=== PATIENT | male | born 1945 | race Caucasian/White ===

== ENCOUNTER 2020-05-28 06:00 | Outpatient (RCR) | payer MEDICARE, BC, SELFPAY | END 2020-06-23 23:59 | disposition home or self-care (01) | LOC: MOT 06:00 | PROVIDERS: PCP Family Medicine; Referring Provider Family Medicine; Visit Provider Family Medicine | DX: I89.0 Lymphedema, not elsewhere classified (principal) | CPT/HCPCS: 97140; 97166 ==

== ENCOUNTER 2022-02-21 15:50 | Inpatient (IN) | payer MEDICARE, BC, SELFPAY ==
[2022-02-21] VITALS (8 sets, daily range): BP systolic 88–123; BP diastolic 42–75; PULSE 75–100; RESP 22–29; TEMP 39.1; O2SAT 96–98; BMI 39.5; BMI 39.8
--- NOTE | 2022-02-21 16:19 | W.ED.WEAKNES ---
HPI - Weakness General: Chief complaint: Weakness Stated complaint: WEAKNESS; FALL Time Seen by Provider: 02/21/22 15:56 Source: patient Mode of arrival: EMS Limitations: no limitations History of Present Illness: Currently is here becauseThis patient was transported from home by EMS to our facility. He or his family are concerned about falling. He apparently has had recent falls last night and this morning. He states he has had some falls previous in the last few weeks. He states he predominantly is changing positions and loses his balance which resulted in a a fall. He did not injure himself today or last night. He states 2 weeks ago he fell and skinned his left arm. He denies passing out or syncope or other prodromes to his falls. He states that usually involve again as noted changing positions or rising up or attempting to move about his home. He does have a walker and a cane he uses to aid in ambulation around home. He denies chest pain or shortness of breath. He does have a history of coronary stents placed several years ago in [place] but again has had no subsequent chest pain shortness of breath or other constitutional symptoms. He states he has been faithful to all his medications. He has chronic peripheral edema as well as diabetes. He denies recent illness to include fever, cough, nausea, vomiting, diarrhea. He states he ate his normal breakfast today. Associated symptoms: Denies chest pain, chills, dysuria, easy bruising, fever(s), headache(s), nausea, syncope or vomiting Review of Systems Const: Denies: fever(s), chills, body aches or change in appetite Eyes: Denies: change in vision ENMT: Denies: odynophagia, nasal congestion or sinus pain Card: Reports: swelling of feet/ankles (Chronic); Denies: chest pain, palpitations, irregular heart rhythm, lightheadedness, syncope or pre-syncope Resp: Denies: dyspnea, productive cough or non-productive cough GI: Denies: abdominal pain, nausea, vomiting or diarrhea : Denies: flank pain, difficulty urinating, dysuria or urinary frequency Musc: Denies: neck pain, back pain or extremity pain Skin/Breast: Reports: rash (Chronic erythema particularly of his left lower extremity.) Neuro: Reports: difficulty walking and frequent falls; Denies: headache(s), numbness in extremities, weakness in extremities, dizziness, vertigo or Slurred speech present Psych: Denies: anxiety or depression Endo: Reports: polydipsia; Denies: polyuria Ron/Lymph: Denies: easy bruising or easy bleeding Physical Exam Narrative: EXAM NARRATIVE: The patient is alert. He is cooperative. He is rather obese gentleman who appears to be comfortable. Const: COMMON NORMALS: no acute distress, patient oriented x3 and alert NUTRITIONAL APPEARANCE: obese and overweight HENMT: COMMON NORMALS: normocephalic, atraumatic, external ears normal, Normal nasal mucous membranes and turbinates present, moist oral mucous membranes and oropharynx normal HEAD & SCALP: normal to inspection, normocephalic and atraumatic FACE & SINUS: normal facial exam NOSE: Normal nasal mucous membranes and turbinates present EXTERNAL EAR: Yes external ears normal Eye: COMMON NORMALS: Equal, round and reactive pupils present, EOMs intact bilaterally and conjunctivae normal CONJUNCTIVA: Yes conjunctivae normal PUPIL: Yes Equal, round and reactive pupils present Neck/C-Spine: COMMON NORMALS: full ROM CERVICAL SPINE: Yes cervical ROM normal, No pain with cervical ROM, No Cervical spine tenderness, No step off deformity, No Paracervical muscle tenderness and No Paracervical spasm Chest: COMMONS NORMALS: normal inspection of the chest and normal palpation of entire chest wall Resp: COMMON NORMALS: normal respiratory effort, No retractions, No use of accessory muscles and clear to auscultation bilaterally AUSCULTATION: clear to auscultation bilaterally Cardio: COMMON NORMALS: regular rate, regular rhythm, No murmurs present (Cardio) and Peripheral pulses 2+ throughout RATE: regular rate RHYTHM: regular rhythm PERIPHERAL PULSES: Peripheral pulses 2+ throughout GI: OTHER: He has a protuberant, obese abdomen. No masses noted. No tenderness to palpation. No erythema of the overlying skin. Back/Pelvis: COMMON NORMALS: thoracic and lumbar spine normal to inspection, no thoracic nor lumbar tenderness, thoraco-lumbar ROM normal and straight leg raise negative bilaterally Extremity: NARRATIVE EXTREMITY EXAM: He is able to move all extremities. He has symmetrical movement. He has markedly hypertrophied skin of both lower extremities with cracking and fissuring. There are some erythema of the left lower leg from the proximal third of the calf distally. There is no proximal lymphangitis or adenopathy. His right lower extremity is nonerythematous but is similarly edematous. Neuro: COMMON NORMALS: patient oriented x3, moves all extremities, no focal motor deficits and no sensory deficits noted SENSORIUM/ORIENTATION: Yes alert SPEECH: speech normal Psych: COMMON NORMALS: mental status grossly normal Skin: COMMON NORMALS: no jaundice NARRATIVE SKIN EXAM: As noted in the extremity exam he has markedly hypertrophied and thickened skin of both lower extremities. He has dry flaky dermis with some cracking and fissuring of the skin in various locations. There is erythema of the skin on his left lower extremity. No proximal lymphangitis or lymphadenopathy noted. Course Reevaluation(s): Reevaluation #1: Patient remains stable. He is alert and interactive. Repeat blood pressures still show systolic pressure between 95 and 105 and a semirecumbent position. Family is now present. They relate that they are very concerned about him particularly ability to care for him at home given his generalized weakness. Again the history was reviewed regarding his most recent 2 falls. His spouse who was present during both episodes states that he essentially slid to the floor on the first episode on the second episode hit her the family was present in the bathroom and prevented him from falling or hurting himself but he stated he was globally weak. Again they reiterate that they are very concerned about him returning home because of his current clinical condition. He apparently has not taken his insulin today we will go ahead and give him his midday insulin to event significant continued elevations in his blood sugar. We have verified that his usual dose of insulin is NovoLog 70/30 56 units 3 times daily. Time: 18:29 Reevaluation #2: Laboratories of now returned. His anion gap is significantly elevated as well as a depressed carbon dioxide level consistent with probable mild DKA given his lack of insulin use today. He also has a mild elevation in his troponin without any associated chest pain or EKG changes. Does have a history of significant myocardial disease which is also the reason for his tenuous blood pressure due to the need to manage his what sounds like and chronic congestive heart failure etc. Discussed current findings and the need for inpatient care to close his gap reverses ketosis. We will also place a consult for social services counselor to evaluate for additional resources or potential admission to [facility] facility post acute hospitalization. Time: 20:16 Consultations: Consultation #1: Discussed with Dr. French attending hospitalist. We will [place] start insulin infusion, IV fluids as well as serial troponins. Time: 20:10 Vital Signs: Vital signs: Vital Signs Pulse Rate 83 02/21/22 19:00 Respiratory Rate 22 H 02/21/22 19:30 Blood Pressure 113/75 02/21/22 19:30 Pulse Oximetry 97 02/21/22 19:30 Oxygen Delivery Me thod 02/21/22 19:00 MDM - Weakness Medical Decision Making Patient presented via EMS with 2 recent falls attributed to global weakness and no focal weakness, no trauma, etc. He had not taken his usual daily insulin dose which was a significant dose of 70/30 Humalog. Initial evaluation showed elevation in Accu-Chek and he was given his usual midday insulin dose. Subsequent laboratories revealed that he had significant anion gap with a low CO2 suggestive of ketosis. This combined with his tenuous myocardial function and elevated troponin warrants admission for insulin infusion, monitoring the closing of his gap and continued monitoring of his cardiac status. Also because of family is concerned about ability to care for him at home we have consulted social services counselor to evaluate for [facility] or long-term care facility placement. Medical Records I reviewed the patient's medical records. Lab Data I reviewed the patient's lab results. : 02/21/22 18:07 02/21/22 18:07 Radiology Impressions Chest X-Ray 02/21/22 18:35 IMPRESSION: 1. Mild cardiomegaly is present. 2. No acute abnormality demonstrated. Laboratory Results WBC 7.4 10^3/uL (4.0-10.0) 02/21/22 18:07 RBC 4.86 10^6/uL (4.1-5.3) 02/21/22 18:07 Hgb 16.1 g/dL (11.7-16.6) 02/21/22 18:07 Hct 49.0 % (42.0-52.0) 02/21/22 18:07 MCV 100.8 fl (80-94) H 02/21/22 18:07 MCH 33.1 pg (28.0-34.0) 02/21/22 18:07 MCHC 32.9 g/dL (30.0-36.0) 02/21/22 18:07 RDW 13.2 % (12.1-15.1) 02/21/22 18:07 Plt Count 139 10^3/cmm (130-400) 02/21/22 18:07 MPV 11.0 fL (7.4-10.4) H 02/21/22 18:07 Neut % (Auto) 85.4 % 02/21/22 18:07 Lymph % (Auto) 6.3 % 02/21/22 18:07 Terrell % (Auto) 7.5 % 02/21/22 18:07 Eos % (Auto) 0.0 % 02/21/22 18:07 Baso % (Auto) 0.7 % 02/21/22 18:07 Neut # (Auto) 6.28 10^3/uL (1.8-7.7) 02/21/22 18:07 Lymph # (Auto) 0.5 10^3/uL (0.8-4.8) L 02/21/22 18:07 Terrell # (Auto) 0.6 10^3/uL (0.2-0.9) 02/21/22 18:07 Eos # (Auto) 0.0 10^3/uL (0.0-0.8) 02/21/22 18:07 Baso # (Auto) 0.1 10^3/uL (0.0-0.1) 02/21/22 18:07 Nucleated RBC % (auto) 0 % 02/21/22 18:07 Nucleated RBCs # 0.0 /100WBC 02/21/22 18:07 Sodium 137 mmol/L (136-145) 02/21/22 18:07 Potassium 5.1 mmol/L (3.5-5.1) 02/21/22 18:07 Chloride 95 mmol/L (98-107) L 02/21/22 18:07 Carbon Dioxide 14 mmol/L (22-29) L 02/21/22 18:07 Anion Gap 33.1 (5-19) H 02/21/22 18:07 BUN 21 mg/dL (8-23) 02/21/22 18:07 Creatinine 1.7 mg/dL (0.7-1.2) H 02/21/22 18:07 GFR Calculation Not Reportable 02/21/22 18:07 Glucose 405 mg/dL (65-115) H 02/21/22 18:07 POC Glucose 375 mg/dL (70-110) H 02/21/22 17:07 Calculated Osmolality 304 mOsm/kg (285-295) H 02/21/22 18:07 Calcium 9.3 mg/dL (8.5-10.5) 02/21/22 18:07 Total Bilirubin 2.2 mg/dL (0.15-1.2) H 02/21/22 18:07 AST 37 U/L (0-40) 02/21/22 18:07 ALT 20 U/L (0-41) 02/21/22 18:07 Alkaline Phosphatase 68 IU/L (40-130) 02/21/22 18:07 Troponin T Baseline 59 ng/L (0-15) H 02/21/22 18:07 Total Protein 6.4 g/dL (6.6-8.7) L 02/21/22 18:07 Albumin 3.6 g/dL (3.5-5.2) 02/21/22 18:07 Globulin 2.8 g/dL (1.3-4.6) 02/21/22 18:07 EKG Data EKG 1: I personally reviewed and interpreted this EKG as follows: EKG interpretation time: 17:00 Interpretation: HasResting EKG shows a sinus rhythm 96 bpm. He has a MD interval and QRS duration that are within normal limits. His QTC is normal as well. [place] is normal as well. No evidence of acute ST-T wave changes at this time. Does have a loss of anterior forces in V3 4 5 and 6 consistent with a possible old anterior lateral MO. No prior tracings available for comparison. Discharge Plan Discharge Patient Disposition: Admitted As Inpatient Clinical Impression: Diabetic keto-acidosis, Elevated troponin Condition: Stable Coding Level of Care Code ED Android Framework Developer for Nicolas Fwd Exam Comprehensive
--- NOTE | 2022-02-21 16:52 | ECG_ITS ---
[facility] Test Date: 2022-02-21 Pat Name: Xavier Easton Department: Room: Gender: Male Records Management Technician: : 1945 Requested By: Oracio Bhat Order Number: [id number] Khadra MD: Jose Gutierres M.D. Measurements Intervals [place] Rate: 96 P: 44 AR: 198 QRS: 67 QRSD: 125 T: 35 QT: 388 QTc: 491 Interpretive Statements SINUS RHYTHM INDETERMINATE AXIS INFERIOR MYOCARDIAL INFARCTION , PROBABLY OLD [40+ ms Q WAVE AND/OR ST/T ABNORMALITY IN II/aVF] ANTEROLATERAL MYOCARDIAL INFARCTION , OF INDETERMINATE AGE [40+ ms Q WAVE IN I/aVL/V3-V6] No previous ECG available for comparison Electronically Signed On 02-22-2022 9:30:08 CDT by Jose Gutierres M.D. [email or web address]
[2022-02-21 17:11] LABS: Glucose Point of Care 375 mg/dL (70-110)
--- NOTE | 2022-02-21 18:35 | XRR_ITS ---
PROCEDURE INFORMATION: Exam: XR Chest Exam date and time: 02/21/2022 6:53 PM Age: 76 years old Clinical indication: Dyspnea; Additional info: Hypotension TECHNIQUE: Imaging protocol: Radiologic exam of the chest. Views: 1 view. COMPARISON: No relevant prior studies available. FINDINGS: Lungs: No consolidative pulmonary infiltrates are noted. Pleural spaces: No pleural effusion. No pneumothorax. Heart/Mediastinum: Mild cardiomegaly is present. Bones/joints: Mild degenerative spine changes. XR/XR chest 1V portable [id number] IMPRESSION: 1. Mild cardiomegaly is present. 2. No acute abnormality demonstrated.
[2022-02-21 18:37] LABS: Basophils # 0.1 10^3/uL (0.0-0.1); Basophils % 0.7 %; Hemoglobin 16.1 g/dL (11.7-16.6); Lymphocytes # 0.5 10^3/uL (0.8-4.8); Lymphocytes % 6.3 %; Mean Corpuscular HGB Conc 32.9 g/dL (30.0-36.0); Mean Corpuscular Hemoglobin 33.1 pg (28.0-34.0); Mean Corpuscular Volume 100.8 fl (80-94); Monocytes # 0.6 10^3/uL (0.2-0.9); Monocytes % 7.5 %; Neutrophils # 6.28 10^3/uL (1.8-7.7); Neutrophils % 85.4 %; Nucleated Red Blood Cells % 0 %; Platelet Count 139 10^3/cmm (130-400); Red Blood Count 4.86 10^6/uL (4.1-5.3); Red Cell Distribution Width 13.2 % (12.1-15.1); White Blood Count 7.4 10^3/uL (4.0-10.0)
[2022-02-21] MEDS: insulin aspart 70/30 100 units/1 mL 56 UNIT SUBCUT (18:53)
[2022-02-21 19:09] LABS: Alanine Aminotransferase 20 U/L (0-41); Albumin Level 3.6 g/dL (3.5-5.2); Alkaline Phosphatase 68 IU/L (40-130); Anion Gap 33.1 (5-19); Aspartate Amino Transferase 37 U/L (0-40); Blood Urea Nitrogen 21 mg/dL (8-23); Calcium 9.3 mg/dL (8.5-10.5); Carbon Dioxide 14 mmol/L (22-29); Chloride 95 mmol/L (98-107); Globulin 2.8 g/dL (1.3-4.6); Glucose 405 mg/dL (65-115); Osmolality Calculated 304 mOsm/kg (285-295); Potassium 5.1 mmol/L (3.5-5.1); Sodium 137 mmol/L (136-145); Total Bilirubin 2.2 mg/dL (0.15-1.2); Total Protein 6.4 g/dL (6.6-8.7)
[2022-02-21 19:18] LABS: Slide Review Slide Review Perform
[2022-02-21 19:25] LABS: Troponin(5th) Baseline 59 ng/L (0-15)
[2022-02-21] MEDS: lactated ringers 1,000 ML 150 ML IV (20:13)
[2022-02-21 20:27] LABS: Glucose Point of Care 354 mg/dL (70-110)
[2022-02-21] MEDS: insulin regular-human 250 UNIT in sodium chloride 0.9% 250 ML 8.91 UNIT IV (21:25)
[2022-02-21] MEDS: aspirin 81 mg Chew Tablet 324 MG PO (21:39)
[2022-02-21 21:40] LABS: ABG PCO2 25.1 mmHg (35-45); ABG PH Result 7.43 (7.35-7.45); Arterial Blood Gas Hematocrit 48.9 % (42-52); Base Excess ABG -5.8 mmol/L (-2.0-2.0); Blood Gas Allen Test Pos; Blood Gas Sample Site Radial, left; Blood Gas Sample Type Arterial; Carboxyhemoglobin 1.3 %THgb (0.4-20.1); HCO3 ABG 16.5 mmol/L (22-26); HGB O2 Sat 93.6 % (95-100); Ionized Calcium Level - ABG 1.2 mmol/L (1.1-1.4); Methemoglobin 0.8 % (0.4-1.5); Oxygen Saturation ABG 95.6; PO2 ABG 71.6 mmHg (80.0-100.0); Potassium Level - ABG 4.2 mmol/L (3.5-5.0)
[2022-02-21 21:50] LABS: Glucose Point of Care 360 mg/dL (70-110)
[2022-02-21] MEDS: acetaminophen 325 mg Tablet 650 MG PO (22:06)
[2022-02-21 22:25] LABS: Glucose Point of Care 343 mg/dL (70-110)
--- NOTE | 2022-02-21 22:44 | P.HP_ITS ---
Providers/Chief Complaint Admitting Physician: Deepa French MD Primary Care Provider: Radha Baer MD Chief Complaint: WEAKNESS; FALL History of Present Illness Xavier Easton is a 76 year old male with PMH HTN,DM, chronic lymphedema brought to the ER today with h/o recurrent falls. History is limited by the patient being in mild distress, acidotic breathing, being febrile. He reports he has been fatigued, has generalized bodyache and has been falling at home over the past 3 weeks. Denies syncope , chest pain, palpitations, syncope at home. Denies fever, chills at home, however has temp of 102F currently. He has B/L LE chronic lymphedema, with left leg appearing warm and erythematous. He states this is chronic. Today he is noted to be in DKA, with hyperglycemia, metabolic acidosis, increased anion gap. He has not used insulin in the last 24 hrs. Denies any nausea, vomiting, diarrhea, abdominal pain, dysuria. Review of Systems General: Reports: 10 or more systems reviewed and unremarkable except in HPI and below Const: Denies: fever(s), chills or body aches Eyes: Denies: change in vision, blurry vision or photophobia ENMT: Reports: hoarseness; Denies: throat pain, enlarged tonsils, odynophagia or nasal congestion Card: Denies: chest pain, palpitations, irregular heart rhythm, edema, swelling of feet/ankles, lightheadedness, pre-syncope, dyspnea on exertion or orthopnea Resp: Denies: dyspnea, productive cough, non-productive cough, wheezing, stridor, pain on inspiration, change in phlegm color, hemoptysis or chest conges tion GI: Denies: abdominal pain, nausea, vomiting, hematemesis, coffee ground emesis, dysphagia, heartburn, diarrhea, constipation, GI cramping, change in stool character, hematochezia or melena : Denies: flank pain, dysuria, urinary frequency, urinary urgency, urinary hesitancy or hematuria Musc: Denies: neck pain, back pain, extremity pain, joint swelling, joint warmth or deformity Neuro: Denies: headache(s), numbness in extremities, weakness in extremities, sensory changes, difficulty walking, frequent falls, dizziness, vertigo, behavioral changes, Slurred speech present or seizure-like activity Psych: Denies: anxiety, depression, suicidal ideation or homicidal ideation Endo: Denies: polyuria, polydipsia, tired all the time, cold intolerance or hot flashes Ron/Lymph: Denies: easy bruising or easy bleeding Medications/Allergies Home Medications Medication Instructions Recorded Confirmed Last Taken Type aspirin 81 mg chewable tablet 81 mg PO DAILY 02/21/22 02/21/22 02/21/22 History atorvastatin 40 mg tablet 40 mg PO DAILY 02/21/22 02/21/22 02/20/22 History clopidogrel 75 mg tablet 75 mg PO DAILY 02/21/22 02/21/22 02/21/22 History insulin human U-100 NPH-regulr 56 unit SUBCUT TID 02/21/22 02/21/22 02/20/22 History 70-30 mix 100 unit/mL subcutaneous susp (Novolin 70/30 U-100 Insulin) isosorbide mononitrate 30 mg 30 mg PO DAILY 02/21/22 02/21/22 02/21/22 History tablet,extended release 24 hr lisinopril 20 mg tablet 10 mg PO DAILY 02/21/22 02/21/22 02/21/22 History potassium chloride 20 mEq 20 meq PO DAILY 02/21/22 02/21/22 02/21/22 History tablet,extended release timolol maleate 0.5 % eye drops 1 drp ophthalmic (eye) DAILY 02/21/22 02/21/22 02/21/22 History torsemide 10 mg tablet 10 mg PO DAILY 02/21/22 02/21/22 02/21/22 History tramadol 50 mg tablet 50 mg PO Q4H PRN Pain 02/21/22 02/21/22 Unknown History Allergies Allergy/AdvReac Type Severity Reaction Status Date / Time No Known Allergies Allergy Unverified 02/21/22 17:59 PFSH Acute PFSH: Medical History (Updated 02/22/22 @ 03:34 by Deepa French MD) Diabetes mellitus Hypertension Lymphedema Vitals/I&O/Wt Last Vital Signs Temp 102.3 F H 02/21/22 21:30 Pulse 76 02/21/22 22:30 Resp 29 H 02/21/22 22:30 BP 123/42 02/21/22 22:30 Pulse Ox 97 02/21/22 22:30 O2 Del Method 02/21/22 22:30 02/21/22 02/21/22 02/21/22 06:59 14:59 22:59 Intake Total 8.91 / 8.91 Balance 8.91 / 8.91 Weight last 48 hrs Weight 136.078 kg Physical Exam Narrative: General: tachypneic, diaphoretic, ill appearing HEENT: PERRLA, pupils bilaterally equal and reactive, pallors not present Chest: Normal vesicular breath sounds CVS: S1-S2 regular, no gallops, no rubs Abdomen: Soft, nontender, no organomegaly, bowel sounds present Neuro: No focal motor deficits, no facial deformity, AO x3 Extremities: B/L LE lymphedema, LLE > RLE, erythematous, warm and tense Data : 02/21/22 18:07 02/21/22 18:07 A&P Assessment and plan (1) Diabetic keto-acidosis: Diabetic ketoacidosis: Start patient on insulin drip as per DKA/HHS protocol with target blood sugars between 100-130 normal saline at 50 cc/h.Gentle hydration as patient is with significant LE edema We will switch to D5 NS once blood sugar less than 250. Monitor BMP every 6 hours. Once potassium less than 4 we will add 20 mg of potassium to IV fluids. Monitor saturations. Maintain over 90%. Transition to sliding scale and long-acting insulin once anion gap resolves. likely precipitated by cellulitis Other infectious w/up with CXR, UA, urine cx, blood cx, lactate Status: Acute (2) Cellulitis: LLE cellulitis with a background lymphedema Empiric zosyn and vancomycin Blood cx stat monitor for improvement Status: Acute Attestations Medical Necessity Statement*: anticipate >2midnight admission for management of DKA, insuin drip, iv abx Critical Care Time: The high probability of a clinically significant, sudden or life threatening deterioration of the patient's [endocrine,infectious] system(s) required my full and direct attention, intervention and personal management. The critical care time is as shown. This time is in addition to time spent performing any reported procedures but includes the following: [x] Data and vital sign review and interpretation [x] Patient assessment, examination and intervention [x] Documentation [x] Medication orders and management Critical Care Time (min): 45 Coding Level of Care Code Acute Assistant Director Of Residence Life for Chg Fwd Diagnoses Diabetic keto-acidosis E11.10 Cellulitis L03.90
[2022-02-21 23:03] LABS: Magnesium 1.6 mg/dL (1.7-2.3)
[2022-02-21 23:45] LABS: Glucose Point of Care 249 mg/dL (70-110)
[2022-02-21 23:45] LABS: Ketone (Acetest) Serum Negative (Negative)
[2022-02-21 23:57] LABS: SARS Covid-2 Antigen Negative (Negative)
[2022-02-22] VITALS (102 sets, daily range): BP systolic 79–151; BP diastolic 34–113; PULSE 58–87; RESP 13–36; TEMP 36.7–39; O2SAT 85–100
[2022-02-22] MEDS: piperacillin-tazobactam 3.375 GM in sodium chloride 0.9% (plus) 50 ML IV ×3 (00:27→17:30)
[2022-02-22 01:06] LABS: Glucose Point of Care 188 mg/dL (70-110)
[2022-02-22] MEDS: dextrose 5%-sod chloride 0.9% 1,000 ML 50 ML IV (01:39)
[2022-02-22 02:53] LABS: Alanine Aminotransferase 20 U/L (0-41); Albumin Level 3.1 g/dL (3.5-5.2); Alkaline Phosphatase 57 IU/L (40-130); Aspartate Amino Transferase 42 U/L (0-40); Blood Urea Nitrogen 29 mg/dL (8-23); Calcium 9.3 mg/dL (8.5-10.5); Carbon Dioxide 19 mmol/L (22-29); Chloride 102 mmol/L (98-107); Globulin 2.8 g/dL (1.3-4.6); Glucose 193 mg/dL (65-115); Osmolality Calculated 293 mOsm/kg (285-295); Sodium 136 mmol/L (136-145); Total Bilirubin 2.2 mg/dL (0.15-1.2); Total Protein 5.9 g/dL (6.6-8.7)
[2022-02-22 02:56] LABS: Glucose Point of Care 182 mg/dL (70-110)
[2022-02-22 03:06] LABS: Glucose Point of Care 179 mg/dL (70-110)
[2022-02-22 03:26] LABS: Anion Gap 19.1 (5-19); Potassium 4.1 mmol/L (3.5-5.1)
[2022-02-22 03:29] LABS: Lactic Sepsis W/Reflex 4.8 mmol/L (0.5-2.2)
[2022-02-22 04:08] LABS: Glucose Point of Care 174 mg/dL (70-110)
[2022-02-22 04:17] LABS: Reflex Lactate Order REFLEX LACTIC ORDERD
[2022-02-22 05:18] LABS: Glucose Point of Care 160 mg/dL (70-110)
[2022-02-22] MEDS: enoxaparin 40 mg/0.4 mL Syringe SUBCUT (06:09)
[2022-02-22 06:14] LABS: Glucose Point of Care 161 mg/dL (70-110)
[2022-02-22 06:19] LABS: Lactic Acid level (Lactate) 3.9 mmol/L (0.5-2.2)
[2022-02-22 06:21] LABS: Alanine Aminotransferase 21 U/L (0-41); Albumin Level 3.4 g/dL (3.5-5.2); Alkaline Phosphatase 51 IU/L (40-130); Aspartate Amino Transferase 48 U/L (0-40); Blood Urea Nitrogen 30 mg/dL (8-23); Calcium 9.1 mg/dL (8.5-10.5); Carbon Dioxide 23 mmol/L (22-29); Chloride 99 mmol/L (98-107); Globulin 2.7 g/dL (1.3-4.6); Glucose 166 mg/dL (65-115); Osmolality Calculated 292 mOsm/kg (285-295); Sodium 136 mmol/L (136-145); Total Bilirubin 2.2 mg/dL (0.15-1.2); Total Protein 6.1 g/dL (6.6-8.7)
[2022-02-22 07:19] LABS: Glucose Point of Care 150 mg/dL (70-110)
[2022-02-22 08:18] LABS: Glucose Point of Care 136 mg/dL (70-110)
[2022-02-22] MEDS: aspirin 81 mg Chew Tablet PO (09:22)
[2022-02-22] MEDS: clopidogrel 75 mg Tablet PO (09:22)
[2022-02-22] MEDS: atorvastatin 40 mg Tablet PO (09:22)
[2022-02-22] MEDS: pantoprazole DR 40 mg Tablet PO (09:22)
[2022-02-22] MEDS: timolol 0.5% Op Soln 5 mL Btl 1 DROP EYE-BOTH (09:30)
[2022-02-22] MEDS: insulin glargine 100 units/1 mL 20 UNIT SUBCUT ×2 (10:48→20:59)
[2022-02-22 10:54] LABS: Glucose Point of Care 148 mg/dL (70-110)
--- NOTE | 2022-02-22 11:20 | P.PN_ITS ---
Subjective Subjective: Patient was seen and examined this morning, slightly drowsy, was complaining of neck pain , anion gap is closed. Transition to Lantus and sliding scale insulin. Noted T-max: 102.3 . on diabetic diet . l Medications: Medication Review Details: Generic Name Dose Route Start Last Admin Trade Name Rain PRN Reason Stop Dose Admin Aspirin 81 mg 02/22/22 09:00 02/22/22 09:22 Aspirin 81 Mg Ch ew Tablet PO 81 mg DAILY GELY Administration Atorvastatin Calci um 40 mg 02/22/22 09:00 02/22/22 09:22 Atorvastatin 40 Mg Tablet PO 40 mg DAILY GELY Administration Clopidogrel Bisulf ate 75 mg 02/22/22 09:00 02/22/22 09:22 Clopidogrel 75 M g Tablet PO 75 mg DAILY EGLY Administration Enoxaparin Sodium 40 mg 02/22/22 06:00 02/22/22 06:09 Enoxaparin 40 Mg /0.4 Ml Syringe SUBCUT 40 mg Q24H GELY Administration Piperacillin Sod/T azobactam 50 mls @ 12.5 mls /hr 02/22/22 00:00 02/22/22 09:23 Sod 3.375 gm/ So dium Chloride IV 12.5 mls/hr Q8H GELY Administration Pantoprazole Sodiu m 40 mg 02/22/22 09:00 02/22/22 09:[address] 40 Mg Tablet PO 40 mg DAILY GELY Administration Timolol Maleate 1 drop 02/22/22 09:00 02/22/22 09:30 Timolol 0.5% Op Soln 5 Ml Btl EYE-BOTH 1 drop DAILY GELY Administration Vitals/I&O/Wt Last Vital Signs Temp 99.3 F 02/22/22 04:00 Pulse 69 02/22/22 08:00 Resp 27 H 02/22/22 06:15 BP 91/67 02/22/22 06:15 Pulse Ox 97 02/22/22 08:00 O2 Del Method 02/22/22 08:00 02/21/22 02/22/22 02/22/22 22:59 06:59 14:59 Intake Total 8.91 / 8.91 801.263 / 810.173 8.874 / 8.874 Output Total 400 / 400 Balance 8.91 / 8.91 401.263 / 410.173 8.874 / 8.874 Weight last 48 hrs Weight 137 kg Weight 137 kg Weight 136.078 kg Physical Exam Const: COMMON NORMALS: patient oriented x3 HENMT: COMMON NORMALS: normocephalic and atraumatic HEAD & SCALP: norm ocephalic and atraumatic Resp: COMMON NORMALS: clear to auscultation bilaterally EFFORT & INSPECTION: Yes symmetric chest movement AUSCULTATION: clear to auscultation bilaterally Cardio: COMMON NORMALS: regular rate, regular rhythm, S1 normal heart sound present, S2 normal heart sound present, No gallops present (Cardio), No murmurs present (Cardio), No rub (Cardio) and Peripheral pulses 2+ throughout RATE: regular rate RHYTHM: regular rhythm HEART SOUNDS: S1 normal heart sound present and S2 normal heart sound present PERIPHERAL PULSES: Peripheral pulses 2+ throughout GI: COMMON NORMALS: Normal to inspection, nondistended, normoactive bowel sounds present, Soft to palpation, non-tender, No hepatosplenomegaly present and no masses AUSCULTATION: Yes normoactive bowel sounds PALPATION: Yes Soft to palpation and Yes No hepatosplenomegaly present RECTAL EXAM: Yes deferred Extremity: OTHER: Chronic lower extremity lymphedema Neuro: COMMON NORMALS: patient oriented x3 Urinary Catheter Management: Santana Latex: Cath Placed During This Visit: yes Reason for Continuing Indwelling Catheter: Accurate Measurement of Urinary Output in Critically Ill Patients Urinary Catheter Date of Insertion: 02/21/22 Urinary Catheter Time of Insertion: 23:51 Data : 02/21/22 18:07 02/22/22 05:50 Micro: Microbiology 02/21/22 23:50 Blood Culture - Preliminary Blood SPECIMEN COLLECTED 02/21/22 23:50 Blood Culture - Preliminary Blood SPECIMEN COLLECTED A&P Assessment and plan (1) Diabetic keto-acidosis: Diabetic ketoacidosis: Start patient on insulin drip as per DKA/HHS protocol wi th target blood sugars between 100-130 normal saline at 50 cc/h.Gentle hydration as patient is with significant LE edema We will switch to D5 NS once blood sugar less than 250. Monitor BMP every 6 hours. Once potassium less than 4 we will add 20 mg of potassium to IV fluids. Monitor saturations. Maintain over 90%. Transition to sliding scale and long-acting insulin once anion gap resolves. likely precipitated by cellulitis Other infectious w/up with CXR, UA, urine cx, blood cx, lactate Status: Acute (2) Cellulitis: LLE cellulitis with a background lymphedema Empiric zosyn and vancomycin Blood cx stat monitor for improvement Status: Acute Plan 76 year old male with PMH HTN,DM, chronic lymphedema brought to the ER with h/o recurrent falls. Currently being managed for. Assessment: DKA: Resolved Likely sepsis: Patient is febrile, has AQUILES, elevated bilirubin, elevated AST, lower extremity cellulitis Hypertension AQUILES on CKD Diabetes Chronic lymphedema History of recurrent fall Assessment: X-ray chest: No consolidative pulmonary infiltrates. Follow blood culture. Follow MRSA PCR Monitor BMP Monitor and output charting Avoid nephrotoxic Continue to hold, lisinopril, torsemide Currently is on Lantus, LDSSI Continue aspirin Plavix, statin Currently is empirically on Vanco and Zosyn physical therapy on board DVT prophylaxis: On Lovenox. CODE STATUS: Full code Attestations Medical Necessity Statement*: Patient is in the hospital management of DKA , sepsis. Time Spent in Patient Care: Greater than 35 minutes (>than 50% of time spent in counselling and/or direct pt care on unit) . Critical Care Time: The high probability of a clinically significant, sudden or life threatening deterioration of the patient's [] system(s) required my full and direct attention, intervention and personal management. The critical care time is as shown. This time is in addition to time spent performing any reported procedures but includes the following: [x] Data and vital sign review and interpretation [x] Patient assessment, examination and intervention [x] Documentation [x] Medication orders and management Critical Care Time (min): 30 Coding Level of Care Code Acute Pest Locator for Chg Fwd Exam Detailed Diagnoses Diabetic keto-acidosis E11.10 Cellulitis L03.90
--- NOTE | 2022-02-22 11:53 | PC.NURSE ---
Upon morning assessment, patient is alert and oriented to person, place, time, and situation, but does have some slurred speech and some issues with coordination when trying to eat. Patient has a history oc a carotid stent. Nurse completed an NIHSS scale and patient has scored a 1. THe patient's is at bedside and says that he has had some coordination issues, and some moments of strange behavior. SHe recalls a time that he has attempted to hand her something, but will not let go and doesn't appear to know he is still holding the item. She says this has started 3 weeks ago[address] Nurse notified Dr wilson. No new orders received.
[2022-02-22] MEDS: insulin lispro 100 unit/1 mL SUBCUT ×3 (12:30→20:57)
[2022-02-22] MEDS: vancomycin 1,500 MG/300 ML PIGGYBACK 200 MG IV (12:32)
[2022-02-22] MEDS: acetaminophen 325 mg Tablet 650 MG PO ×2 (12:38→21:04)
[2022-02-22] MEDS: sodium chloride 0.9% 500 ML IV (14:29)
[2022-02-22 17:32] LABS: Glucose Point of Care 206 mg/dL (70-110)
--- NOTE | 2022-02-22 18:42 | PC.NURSE ---
SHift Summary: uneventful shift. patient rested in bed most of the day, but was briefly standing with PT. Patient has 4+ edema to bilateral legs. Left legs also has what appears to be a cellulitis rash. Left leg is red, excoriated, multiple small blisters to the avilez. Skin tear to the left foot which appears to be due to a torn blister. Nurse has observed patient has a lack of coordination, and is lethargic. NIHSS scale completed and physician notified. Per the family symptoms started 3 weeks ago. See previous nurse note.
[2022-02-22 20:56] LABS: Glucose Point of Care 217 mg/dL (70-110)
[2022-02-22 21:35] LABS: Alanine Aminotransferase 21 U/L (0-41); Albumin Level 2.6 g/dL (3.5-5.2); Alkaline Phosphatase 62 IU/L (40-130); Anion Gap 16.5 (5-19); Aspartate Amino Transferase 48 U/L (0-40); Blood Urea Nitrogen 26 mg/dL (8-23); Calcium 8.8 mg/dL (8.5-10.5); Carbon Dioxide 22 mmol/L (22-29); Chloride 104 mmol/L (98-107); Creatinine Clr Calc Pharmacy 99.8861; Globulin 2.7 g/dL (1.3-4.6); Glucose 242 mg/dL (65-115); Osmolality Calculated 299 mOsm/kg (285-295); Potassium 4.5 mmol/L (3.5-5.1); Sodium 138 mmol/L (136-145); Total Bilirubin 1.9 mg/dL (0.15-1.2); Total Protein 5.3 g/dL (6.6-8.7)
--- NOTE | 2022-02-22 22:34 | USCV_ITS ---
Xavier Easton Age: 76 Gender: M : 1945 Exam Date: 02/22/2022 07:46 Ordering Phys: Deepa French MD Technologist: Aram Hector Exam Location: [facility] [place] Indication: chf BP: 118 / 57 HR: 75 Rhythm: Sinus Technical Quality: Adequate MEASUREMENTS (Male / Female) Normal Values 2D ECHO LV Diastolic Diameter PLAX 5.1 cm 4.2 - 5.9 / 3.9 - 5.3 cm LV Systolic Diameter PLAX 3.0 cm IVS Diastolic Thickness 1.4 cm 0.6 - 1.0 / 0.6 - 0.9 cm IVS Systolic Thickness 1.7 cm LVPW Diastolic Thickness 1.3 cm 0.6 - 1.0 / 0.6 - 0.9 cm LVPW Systolic Thickness 1.2 cm LVOT Diameter 0.0 cm LV Ejection Fraction 2D Teich 71.1 % LA Diameter 4.3 cm M-MODE Aortic Annulus Diameter 3.9 cm LA Ao Ratio MM 1.3 MV E Point Septal Separation 0.8 cm DOPPLER AV Peak Velocity 184.0 cm/s LVOT Peak Velocity 133.0 cm/s AV Area Cont Eq vti 0.0 cm squared AV Area Cont Eq pk 0.0 cm squared MV E' Velocity 6.0 cm/s TR Peak Velocity 155.0 cm/s TR Peak Gradient 9.6 mmHg Right Atrial Pressure 3.0 mmHg Pulmonary Artery Systolic Pressu 12.6 mmHg PV Peak Velocity 121.0 cm/s FINDINGS Left Ventricle Normal left ventricular size and systolic function, EF 71% . No regional wall motion abnormalities. Right Ventricle Possibly normal RV size and ejection fraction Right Atrium Normal right atrial size. Left Atrium Normal left atrial size. Mitral Valve No gross abnormalities noted Aortic Valve No gross abnormalities noted Tricuspid Valve No gross abnormalities noted Pulmonic Valve Pulmonic valve not well visualized. Pericardium No pericardial effusion. Aorta Normal aortic annulus size. IVC Normal inferior vena cava. CONCLUSIONS Normal left ventricular size and systolic function, EF 71% . No regional wall motion abnormalities. Normal cardiac chamber sizes. No gross valvular abnormalities No intracardiac masses No pericardial effusion The right-sided structures could not be visualized well No similar previous studies are available for comparison Dr Ferdinand Valdivia MD [facility] (Electronically Signed) Final Date: 22 February 2022 21:20 S
[2022-02-23] VITALS (83 sets, daily range): BP systolic 101–158; BP diastolic 54–100; PULSE 63–87; RESP 11–35; TEMP 36.6–38.1; O2SAT 89–100
[2022-02-23 03:19] LABS: Basophils % 0.2 %; Eosinophils % 0.1 %; Hematocrit 39.7 % (42.0-52.0); Hemoglobin 13.2 g/dL (11.7-16.6); Lymphocytes # 0.7 10^3/uL (0.8-4.8); Lymphocytes % 8.9 %; Mean Corpuscular HGB Conc 33.2 g/dL (30.0-36.0); Mean Corpuscular Volume 99.3 fl (80-94); Mean Platelet Volume 11.2 fL (7.4-10.4); Monocytes # 0.5 10^3/uL (0.2-0.9); Monocytes % 6.6 %; Neutrophils % 83.1 %; Nucleated Red Blood Cells % 0 %; Platelet Count 109 10^3/cmm (130-400); Red Cell Distribution Width 12.6 % (12.1-15.1); White Blood Count 8.1 10^3/uL (4.0-10.0)
[2022-02-23 03:32] LABS: Estmated Average Glucose 192; Hemoglobin A1C 8.3 % (4.0-6.0)
[2022-02-23 03:37] LABS: Alanine Aminotransferase 18 U/L (0-41); Albumin Level 2.2 g/dL (3.5-5.2); Alkaline Phosphatase 58 IU/L (40-130); Blood Urea Nitrogen 22 mg/dL (8-23); Calcium 8.8 mg/dL (8.5-10.5); Carbon Dioxide 20 mmol/L (22-29); Chloride 105 mmol/L (98-107); Creatinine Clr Calc Pharmacy 112.3719; Glucose 275 mg/dL (65-115); Osmolality Calculated 297 mOsm/kg (285-295); Sodium 137 mmol/L (136-145); Total Bilirubin 1.9 mg/dL (0.15-1.2); Total Protein 5.2 g/dL (6.6-8.7)
[2022-02-23 03:39] LABS: Anion Gap 16.6 (5-19); Aspartate Amino Transferase 41 U/L (0-40); Potassium 4.6 mmol/L (3.5-5.1)
[2022-02-23] MEDS: enoxaparin 40 mg/0.4 mL Syringe SUBCUT (05:04)
[2022-02-23] MEDS: vancomycin 1,500 MG/300 ML PIGGYBACK 200 MG IV ×2 (05:57→17:48)
[2022-02-23 08:17] LABS: Glucose Point of Care 241 mg/dL (70-110)
--- NOTE | 2022-02-23 08:43 | PM.PN ---
Subjective Subjective: Patient was seen and examined this morning, overall he is improving, working with physical therapy, Serum creatinine has normalized, has been afebrile overnight, good urine output. Medications: Medication Review Details: Generic Name Dose Route Start Last Admin Trade Name Rain PRN Reason Stop Dose Admin Acetaminophen 650 mg 02/21/22 22:34 02/22/22 21:04 Acetaminophen 32 5 Mg Tablet PO 650 mg Q6H PRN Administration MILD PAIN Aspirin 81 mg 02/22/22 09:00 02/22/22 09:22 Aspirin 81 Mg Ch ew Tablet PO 81 mg DAILY GELY Administration Atorvastatin Calci um 40 mg 02/22/22 09:00 02/22/22 09:22 Atorvastatin 40 Mg Tablet PO 40 mg DAILY GELY Administration Clopidogrel Bisulf ate 75 mg 02/22/22 09:00 02/22/22 09:22 Clopidogrel 75 M g Tablet PO 75 mg DAILY GELY Administration Enoxaparin Sodium 40 mg 02/22/22 06:00 02/23/22 05:04 Enoxaparin 40 Mg /0.4 Ml Syringe SUBCUT 40 mg Q24H GELY Administration Piperacillin Sod/T azobactam 50 mls @ 12.5 mls /hr 02/22/22 00:00 02/23/22 04:00 Sod 3.375 gm/ So dium Chloride IV Infused Q8H GELY Infusion Vancomycin/PEG/NAD A/Lysine/Water 1,500 mg in 300 m ls @ 200 mls/hr 02/22/22 12:30 02/23/22 05:57 Vancocin IV 200 mls/hr Q18H GELY Administration Insulin Human Lisp ro 0 unit 02/22/22 12:00 02/22/22 20:57 Insulin Lispro 1 00 Unit/1 Ml SUBCUT 4 unit WM&BEDTIME GELY Administration Protocol Pantoprazole Sodiu m 40 mg 02/22/22 09:00 02/22/22 09:[address] 40 Mg Tablet PO 40 mg DAILY GELY Administration Timolol Maleate 1 drop 02/22/22 09:00 02/22/22 09:30 Timolol 0.5% Op Soln 5 Ml Btl EYE-BOTH 1 drop DAILY GELY Administration Vitals/I&O/Wt Last Vital Signs Temp 98.9 F 02/23/22 00:00 Pulse 64 02/23/22 06:15 Resp 25 H 02/23/22 06:15 BP 105/65 02/23/22 06:15 Pulse Ox 95 02/23/22 06:15 O2 Del Method 02/22/22 21:00 02/22/22 02/23/22 02/23/22 22:59 06:59 14:59 Intake Total 1763.453 / 2122.327 50 / 2172.327 Output Total 1350 / 1600 700 / 2300 Balance 413.453 / 522.327 -650 / -127.673 Weight last 48 hrs Weight 137 kg Weight 137 kg Weight 137 kg Weight 136.078 kg Physical Exam Const: COMMON NORMALS: patient oriented x3 HENMT: COMMON NORMALS: normocephalic and atraumatic HEAD & SCALP: normocephalic and atraumatic Resp: COMMON NORMALS: clear to auscultation bilaterally EFFORT & INSPECTION: Yes symmetric chest movement AUSCULTATION: clear to auscultation bilaterally Cardio: COMMON NORMALS: regular rate, regular rhythm, S1 normal heart sound present, S2 normal heart sound present, No gallops present (Cardio), No murmurs present (Cardio), No rub (Cardio) and Peripheral pulses 2+ throughout RATE: regular rate RHYTHM: regular rhythm HEART SOUNDS: S1 normal heart sound present and S2 normal heart sound present PERIPHERAL PULSES: Peripheral pulses 2+ throughout GI: COMMON NORMALS: Normal to inspection, nondistended, normoactive bowel sounds present, Soft to palpation, non-tender, No hepatosplenomegaly present and no masses AUSCULTATION: Yes normoactive bowel sounds PALPATION: Yes Soft to palpation and Yes No hepatosplenomegaly present RECTAL EXAM: Yes deferred Extremity: COMMON NORMALS: no clubbing, cyanosis or edema and no pedal edema OTHER: Chronic lower extremity lymphedema Neuro: COMMON NORMALS: patient oriented x3 Urinary Catheter Management: Santana Latex: Cath Placed During This Visit: yes Reason for Continuing Indwelling Catheter: Accurate Measurement of Urinary Output in Critically Ill Patients Urinary Catheter Date of Insertion: 02/21/22 Urinary Catheter Time of Insertion: 23:51 Data : 02/23/22 03:06 02/23/22 03:06 Micro: Microbiology 02/21/22 23:50 Blood Culture - Preliminary Blood NEGATIVE TO DATE 02/21/22 23:50 Blood Culture - Preliminary Blood NEGATIVE TO DATE A&P Assessment and plan (1) Diabetic keto-acidosis: Diabetic ketoacidosis: Start patient on insulin drip as per DKA/HHS protocol with target blood sugars between 100-130 normal saline at 50 cc/h.Gentle hydration as patient is with significant LE edema We will switch to D5 NS once blood sugar less than 250. Monitor BMP every 6 hours. Once potassium less than 4 we will add 20 mg of potassium to IV fluids. Monitor saturations. Maintain over 90%. Transition to sliding scale and long-acting insulin once anion gap resolves. likely precipitated by cellulitis Other infectious w/up with CXR, UA, urine cx, blood cx, lactate Status: Acute (2) Cellulitis: LLE cellulitis with a background lymphedema Empiric zosyn and vancomycin Blood cx stat monitor for improvement Status: Acute Plan 76 year old male with PMH HTN,DM, chronic lymphedema brought to the ER with h/o recurrent falls. Currently being managed for. Assessment: DKA: Resolved Sepsis: Patient is febrile, has AQUILES, elevated bilirubin, elevated AST, lower extremity cellulitis Hypertension AQUILES on CKD Diabetes Chronic lymphedema History of recurrent fall Assessment: X-ray chest: No consolidative pulmonary infiltrates. 2D Echo : Normal left ventricular size and systolic function, EF 71% .No RWMA, ?Normal cardiac chamber sizes. No gross valvular abnormalities, No intracardiac masses No pericardial effusion. Blood culture: NTD MRSA PCR: HbA1c 8.3 Monitor BMP Monitor Intake and output charting Avoid nephrotoxic Continue to hold, lisinopril, torsemide Currently is on Lantus, LDSSI Continue aspirin Plavix, statin Currently is empirically on Vanco and Zosyn physical therapy on board DVT prophylaxis: On Lovenox. CODE STATUS: Full code Attestations Medical Necessity Statement*: Patient is to be in hospital management of sepsis , given his history of recurrent fall, significant weakness, Will need SNF placement. second time worker has been working on it. Coding Level of Care Code Acute Radiology Specialist for [facility] Fwd Exam Detailed Diagnoses Diabetic keto-acidosis E11.10 Cellulitis L03.90
[2022-02-23] MEDS: clopidogrel 75 mg Tablet PO (09:32)
[2022-02-23] MEDS: insulin lispro 100 unit/1 mL SUBCUT ×4 (09:32→20:33)
[2022-02-23] MEDS: piperacillin-tazobactam 3.375 GM in sodium chloride 0.9% (plus) 50 ML IV ×3 (09:33→15:44)
[2022-02-23] MEDS: aspirin 81 mg Chew Tablet PO (09:33)
[2022-02-23] MEDS: timolol 0.5% Op Soln 5 mL Btl 1 DROP EYE-BOTH (09:33)
[2022-02-23] MEDS: pantoprazole DR 40 mg Tablet PO (09:33)
[2022-02-23] MEDS: atorvastatin 40 mg Tablet PO (09:33)
--- NOTE | 2022-02-23 10:01 | PC.CHAP ---
Pastoral Care Encounter/Spiritual Assessment Type of Contact [] Declined body component engineer visit [] Patient/Family/Request visit [] Outpatient visit [] Follow-up visit [] Physician referral [] Code/Alert [x] Routine visit [] Staff referral [] Actively dying [] Patient sleeping [] Family support [] [] Out of room [] Palliative care [] [x] Receiving care in room [] Pre-surgical visit [] Trauma [] Long length of stay [x] ICU visit [] Other: Relational/Emotional Strength [] Patient feels connected with others/family/visitors/staff [] Distress [] Loneliness/isolation [] Abandonment Spirituality of Patient [] Person of Yvonne [] Attends Adventism of their Yvonne [] Believes in Prayer [] Reads Bible or Yarsani materials [] There are Spiritual issues to be addressed Home Office Representative Interventions [x] Prayer [] Active listening [] Non-anxious presence [] Spiritual/emotional support [] Crisis/trauma care [] Spiritual counseling [] Bereavement support [] Provided bereavement packet [] Provided Bible/devotional materials [] Provided toy/stuffed animal, coloring book to patient or family member [] Provided Communion [] Anointing/[place] [] Salvation [x] Completed spiritual assessment [] Other: Impact on Illness or Injury [] Angry [] Fearful [] Anxious [] Often cries [] Exhaustion [] Unable to work [] Unable to attend amish [] Unable to walk/stand [] Unable to read [] Unable to drive [] Unable to eat/drink [] Unable to sleep [] Unable to be with family [] Patient intubated [] Other: Summary Time spent with patient
[2022-02-23 12:19] LABS: Glucose Point of Care 252 mg/dL (70-110)
[2022-02-23] MEDS: amlodipine 5 mg Tablet PO (15:43)
[2022-02-23 17:13] LABS: Glucose Point of Care 230 mg/dL (70-110)
[2022-02-23] MEDS: acetaminophen 325 mg Tablet 650 MG PO (18:14)
--- NOTE | 2022-02-23 18:43 | PC.NURSE ---
Uneventful shift. Patient has been up to the chair for breakfast, lunch, and dinner, and has ambulated with PT about 20 feet. Patient remains alert to person, place, time, and situation, still has some coordination issues, but improved compared to yesterday. Patients room was kept well lit with curtains drawn to provide additional stimulation. Patient is more alert and engaged than yesterday. Pending half-way placement.
--- NOTE | 2022-02-23 18:45 | PC.NURSE ---
Family contact #: - stevie- [phone] Daughter -Kathie- [phone]
[2022-02-23 20:27] LABS: Glucose Point of Care 250 mg/dL (70-110)
[2022-02-23] MEDS: insulin glargine 100 units/1 mL 40 UNIT SUBCUT (20:33)
--- NOTE | 2022-02-23 21:55 | PC.NURSE ---
report called to [facility] @ 2740. pt brought to room 256 bed 1 @ 5200
[2022-02-24] VITALS (9 sets, daily range): BP systolic 118–146; BP diastolic 70–82; PULSE 68–74; RESP 12–18; TEMP 36.5–37.1; O2SAT 93–97
[2022-02-24] MEDS: piperacillin-tazobactam 3.375 GM in sodium chloride 0.9% (plus) 50 ML IV ×3 (00:15→15:04)
[2022-02-24 05:37] LABS: Basophils % 0.4 %; Eosinophils % 0.4 %; Hematocrit 37.6 % (42.0-52.0); Hemoglobin 13.3 g/dL (11.7-16.6); Lymphocytes # 0.7 10^3/uL (0.8-4.8); Lymphocytes % 7.5 %; Mean Corpuscular HGB Conc 35.4 g/dL (30.0-36.0); Mean Corpuscular Hemoglobin 33.3 pg (28.0-34.0); Mean Platelet Volume 11.2 fL (7.4-10.4); Monocytes # 0.5 10^3/uL (0.2-0.9); Monocytes % 5.7 %; Neutrophils # 7.81 10^3/uL (1.8-7.7); Neutrophils % 85.7 %; Nucleated Red Blood Cells % 0 %; Platelet Count 122 10^3/cmm (130-400); Red Cell Distribution Width 12.3 % (12.1-15.1); White Blood Count 9.1 10^3/uL (4.0-10.0)
[2022-02-24 06:09] LABS: Alanine Aminotransferase 17 U/L (0-41); Albumin Level 2.4 g/dL (3.5-5.2); Alkaline Phosphatase 64 IU/L (40-130); Aspartate Amino Transferase 24 U/L (0-40); Blood Urea Nitrogen 18 mg/dL (8-23); Carbon Dioxide 23 mmol/L (22-29); Chloride 103 mmol/L (98-107); Creatinine Clr Calc Pharmacy 112.3719; Globulin 3.3 g/dL (1.3-4.6); Glucose 244 mg/dL (65-115); Osmolality Calculated 294 mOsm/kg (285-295); Sodium 137 mmol/L (136-145); Total Bilirubin 1.2 mg/dL (0.15-1.2); Total Protein 5.7 g/dL (6.6-8.7); Vancomycin Trough 8.9 ug/mL (10-15)
[2022-02-24 06:29] LABS: Glucose Point of Care 230 mg/dL (70-110)
[2022-02-24] MEDS: enoxaparin 40 mg/0.4 mL Syringe SUBCUT (06:32)
[2022-02-24] MEDS: vancomycin 1,500 MG/300 ML PIGGYBACK 200 MG IV (06:33)
[2022-02-24] MEDS: insulin lispro 100 unit/1 mL SUBCUT ×4 (08:28→22:36)
[2022-02-24] MEDS: timolol 0.5% Op Soln 5 mL Btl 1 DROP EYE-BOTH (08:29)
[2022-02-24] MEDS: atorvastatin 40 mg Tablet PO (08:29)
[2022-02-24] MEDS: pantoprazole DR 40 mg Tablet PO (08:29)
[2022-02-24] MEDS: aspirin 81 mg Chew Tablet PO (08:29)
[2022-02-24] MEDS: clopidogrel 75 mg Tablet PO (08:29)
[2022-02-24 11:52] LABS: Glucose Point of Care 225 mg/dL (70-110)
--- NOTE | 2022-02-24 12:08 | PC.SOCIAL ---
Pg 2 IMM Explained to pt & family Pg 2 IMM. No questions voiced. Provided pt a copy. Initialed, dated, & timed a copy & placed in chart.
--- NOTE | 2022-02-24 14:36 | PC.OT ---
Patient refused to participate in OT services this date. Stated, I am tired, I want to sleep. Do not want any therapy. Patient's spouse present bed side. Nursing notified of patient's refusal.
[2022-02-24 17:22] LABS: Glucose Point of Care 236 mg/dL (70-110)
--- NOTE | 2022-02-24 17:51 | PM.PN ---
Subjective Subjective: Patient was seen and examined this morning, noted T-max overnight is: 100.5. His other vitals and labs have been reviewed. Given the fact that the blood cultures have remained negative, MRSA PCR is negative: We will discontinue vancomycin. Medications: Medication Review Details: Generic Name Dose Route Start Last Admin Trade Name Rain PRN Reason Stop Dose Admin Acetaminophen 650 mg 02/21/22 22:34 02/23/22 18:14 Acetaminophen 32 5 Mg Tablet PO 650 mg Q6H PRN Administration MILD PAIN Aspirin 81 mg 02/22/22 09:00 02/24/22 08:29 Aspirin 81 Mg Ch ew Tablet PO 81 mg DAILY GELY Administration Atorvastatin Calci um 40 mg 02/22/22 09:00 02/24/22 08:29 Atorvastatin 40 Mg Tablet PO 40 mg DAILY GELY Administration Clopidogrel Bisulf ate 75 mg 02/22/22 09:00 02/24/22 08:29 Clopidogrel 75 M g Tablet PO 75 mg DAILY GELY Administration Enoxaparin Sodium 40 mg 02/22/22 06:00 02/24/22 06:32 Enoxaparin 40 Mg /0.4 Ml Syringe SUBCUT 40 mg Q24H GELY Administration Piperacillin Sod/T azobactam 50 mls @ 12.5 mls /hr 02/22/22 00:00 02/24/22 15:04 Sod 3.375 gm/ So dium Chloride IV 12.5 mls/hr Q8H GELY Administration Insulin Glargine 40 unit 02/23/22 21:00 02/23/22 20:33 Insulin Glargine 100 Units/1 Ml SUBCUT 40 unit BEDTIME GELY Administration Insulin Human Lisp ro 0 unit 02/23/22 18:00 02/24/22 17:30 Insulin Lispro 1 00 Unit/1 Ml SUBCUT 8 unit WM&BEDTIME GELY Administration Protocol Pantoprazole Sodiu m 40 mg 02/22/22 09:00 02/24/22 08:[address] 40 Mg Tablet PO 40 mg DAILY GELY Administration Timolol Maleate 1 drop 02/22/22 09:00 02/24/22 08:29 Timolol 0.5% Op Soln 5 Ml Btl EYE-BOTH 1 drop DAILY GELY Administration Vitals/I&O/Wt Last Vital Signs Temp 98.1 F 02/24/22 15:56 Pulse 70 02/24/22 15:56 Resp 18 02/24/22 15:56 BP 136/76 02/24/22 15:56 Pulse Ox 95 02/24/22 15:56 O2 Del Method 02/24/22 15:56 02/24/22 02/24/22 02/24/22 06:59 14:59 22:59 Intake Total 200 / 1450 830 / 830 Output Total 800 / 800 Balance 200 / 425 30 / 30 Weight last 48 hrs Weight 138.091 kg Weight 137 kg Physical Exam Const: COMMON NORMALS: patient oriented x3 HENMT: COMMON NORMALS: normocephalic and atraumatic HEAD & SCALP: normocephalic and atraumatic Resp: COMMON NORMALS: clear to auscultation bilaterally EFFORT & INSPECTION: Yes symmetric chest movement AUSCULTATION: clear to auscultation bilaterally Cardio: COMMON NORMALS: regular rate, regular rhythm, S1 normal heart sound present, S2 normal heart sound present, No gallops present (Cardio), No murmurs present (Cardio), No rub (Cardio) and Peripheral pulses 2+ throughout RATE: regular rate RHYTHM: regular rhythm HEART SOUNDS: S1 normal heart sound present and S2 normal heart sound present PERIPHERAL PULSES: Peripheral pulses 2+ throughout GI: COMMON NORMALS: Normal to inspection, nondistended, normoactive bowel sounds present, Soft to palpation, non-tender, No hepatosplenomegaly present and no masses AUSCULTATION: Yes normoactive bowel sounds PALPATION: Yes Soft to palpation and Yes No hepatosplenomegaly present RECTAL EXAM: Yes deferred Extremity: COMMON NORMALS: no clubbing, cyanosis or edema and no pedal edema OTHER: Chronic lower extremity lymphedema, Neuro: COMMON NORMALS: patient oriented x3 Urinary Catheter Management: Santana Latex: Cath Placed During This Visit: yes Reason for Continuing Indwelling Catheter: Acute Urinary Retention or Obstruction Urinary Catheter Date of Insertion: 02/21/22 Urinary Catheter Time of Insertion: 23:51 Data : 02/24/22 05:26 02/24/22 05:26 Micro: Microbiology 02/22/22 14:30 MRSA Culture - Final Nose A&P Assessment and plan (1) Diabetic keto-acidosis: Diabetic ketoacidosis: Start patient on insulin drip as per DKA/HHS protocol with target blood sugars between 100-130 normal saline at 50 cc/h.Gentle hydration as patient is with significant LE edema We will switch to D5 NS once blood sugar less than 250. Monitor BMP every 6 hours. Once potassium less than 4 we will add 20 mg of potassium to IV fluids. Monitor saturations. Maintain over 90%. Transition to sliding scale and long-acting insulin once anion gap resolves. likely precipitated by cellulitis Other infectious w/up with CXR, UA, urine cx, blood cx, lactate Status: Acute (2) Cellulitis: LLE cellulitis with a background lymphedema Empiric zosyn and vancomycin Blood cx stat monitor for improvement Status: Acute Plan 76 year old male with PMH HTN,DM, chronic lymphedema brought to the ER with h/o recurrent falls. Currently being managed for. Assessment: DKA: Resolved Sepsis: Patient is febrile, has AQUILES, elevated bilirubin, elevated AST, lower extremity cellulitis Hypertension AQUILES on CKD Diabetes Chronic lymphedema History of recurrent fall Assessment: X-ray chest: No consolidative pulmonary infiltrates. 2D Echo : Normal left ventricular size and systolic function, EF 71% .No RWMA, ?Normal cardiac chamber sizes. No gross valvular abnormalities, No intracardiac masses No pericardial effusion. Blood culture: NTD Urine culture: MRSA PCR: Negative HbA1c 8.3 Monitor BMP Monitor Intake and output charting Avoid nephrotoxic Continue to hold, lisinopril, torsemide Currently is on Lantus, MDSSI Continue aspirin Plavix, statin Currently is empirically on Zosyn Vancomycin has been discontinued. physical therapy on board DVT prophylaxis: On Lovenox. CODE STATUS: Full code Attestations Medical Necessity Statement*: Patient is still in hospital for management of sepsis. Coding Level of Care Code Acute Data Reduction Technician for [facility] Diagnoses Diabetic keto-acidosis E11.10 Cellulitis L03.90
[2022-02-24] MEDS: insulin glargine 100 units/1 mL 40 UNIT SUBCUT (20:44)
[2022-02-24 22:24] LABS: Glucose Point of Care 235 mg/dL (70-110)
[2022-02-25] VITALS (8 sets, daily range): BP systolic 115–151; BP diastolic 67–87; PULSE 55–76; RESP 17–19; TEMP 36.8–37.1; O2SAT 93–97; BMI 40.1
[2022-02-25] MEDS: piperacillin-tazobactam 3.375 GM in sodium chloride 0.9% (plus) 50 ML IV ×3 (00:49→17:37)
[2022-02-25 04:54] LABS: Alanine Aminotransferase 19 U/L (0-41); Albumin Level 2.1 g/dL (3.5-5.2); Alkaline Phosphatase 75 IU/L (40-130); Aspartate Amino Transferase 22 U/L (0-40); Blood Urea Nitrogen 19 mg/dL (8-23); Carbon Dioxide 21 mmol/L (22-29); Chloride 105 mmol/L (98-107); Globulin 3.6 g/dL (1.3-4.6); Glucose 212 mg/dL (65-115); Osmolality Calculated 293 mOsm/kg (285-295); Sodium 137 mmol/L (136-145); Total Protein 5.7 g/dL (6.6-8.7)
[2022-02-25 04:56] LABS: Anion Gap 14.6 (5-19); Potassium 3.6 mmol/L (3.5-5.1)
[2022-02-25] MEDS: enoxaparin 40 mg/0.4 mL Syringe SUBCUT (06:05)
[2022-02-25 06:45] LABS: Glucose Point of Care 197 mg/dL (70-110)
[2022-02-25 07:01] LABS: Basophils % 0.4 %; Eosinophils % 0.5 %; Hematocrit 38.3 % (42.0-52.0); Lymphocytes # 0.8 10^3/uL (0.8-4.8); Lymphocytes % 10.1 %; Mean Corpuscular HGB Conc 33.9 g/dL (30.0-36.0); Mean Corpuscular Hemoglobin 33.2 pg (28.0-34.0); Mean Corpuscular Volume 97.7 fl (80-94); Mean Platelet Volume 10.8 fL (7.4-10.4); Monocytes # 0.6 10^3/uL (0.2-0.9); Monocytes % 7.6 %; Neutrophils % 80.9 %; Nucleated Red Blood Cells % 0 %; Platelet Count 137 10^3/cmm (130-400); Red Blood Count 3.92 10^6/uL (4.1-5.3); Red Cell Distribution Width 12.8 % (12.1-15.1); White Blood Count 8.3 10^3/uL (4.0-10.0)
[2022-02-25] MEDS: clopidogrel 75 mg Tablet PO (09:01)
[2022-02-25] MEDS: aspirin 81 mg Chew Tablet PO (09:01)
[2022-02-25] MEDS: pantoprazole DR 40 mg Tablet PO (09:01)
[2022-02-25] MEDS: atorvastatin 40 mg Tablet PO (09:01)
[2022-02-25] MEDS: insulin lispro 100 unit/1 mL SUBCUT ×4 (09:02→21:57)
[2022-02-25] MEDS: timolol 0.5% Op Soln 5 mL Btl 1 DROP EYE-BOTH (09:04)
[2022-02-25] MEDS: TORSEmide 20 mg Tablet 10 MG PO (12:01)
[2022-02-25 12:34] LABS: Glucose Point of Care 280 mg/dL (70-110)
[2022-02-25 12:59] LABS: SARS Covid-2 Antigen Negative (Negative)
--- NOTE | 2022-02-25 15:43 | PM.PN ---
Subjective Subjective: Patient was seen and examined this morning, currently he has remained afebrile close to 48 hours, Working with physical therapy. Significant lower extremity swelling due to chronic lymphedema Since the kidney function has normalized, will reinitiate home torsemide. Medications: Medication Review Details: Generic Name Dose Route Start Last Admin Trade Name Rain PRN Reason Stop Dose Admin Acetaminophen 650 mg 02/21/22 22:34 02/23/22 18:14 Acetaminophen 32 5 Mg Tablet PO 650 mg Q6H PRN Administration MILD PAIN Aspirin 81 mg 02/22/22 09:00 02/24/22 08:29 Aspirin 81 Mg Ch ew Tablet PO 81 mg DAILY GELY Administration Atorvastatin Calci um 40 mg 02/22/22 09:00 02/24/22 08:29 Atorvastatin 40 Mg Tablet PO 40 mg DAILY GELY Administration Clopidogrel Bisulf ate 75 mg 02/22/22 09:00 02/24/22 08:29 Clopidogrel 75 M g Tablet PO 75 mg DAILY GELY Administration Enoxaparin Sodium 40 mg 02/22/22 06:00 02/24/22 06:32 Enoxaparin 40 Mg /0.4 Ml Syringe SUBCUT 40 mg Q24H GELY Administration Piperacillin Sod/T azobactam 50 mls @ 12.5 mls /hr 02/22/22 00:00 02/24/22 15:04 Sod 3.375 gm/ So dium Chloride IV 12.5 mls/hr Q8H GELY Administration Insulin Glargine 40 unit 02/23/22 21:00 02/23/22 20:33 Insulin Glargine 100 Units/1 Ml SUBCUT 40 unit BEDTIME GELY Administration Insulin Human Lisp ro 0 unit 02/23/22 18:00 02/24/22 17:30 Insulin Lispro 1 00 Unit/1 Ml SUBCUT 8 unit WM&BEDTIME GELY Administration Protocol Pantoprazole Sodiu m 40 mg 02/22/22 09:00 02/24/22 08:[address] 40 Mg Tablet PO 40 mg DAILY GELY Administration Timolol Maleate 1 drop 02/22/22 09:00 02/24/22 08:29 Timolol 0.5% Op Soln 5 Ml Btl EYE-BOTH 1 drop DAILY GELY Administration Vitals/I&O/Wt Last Vital Signs Temp 98.2 F 02/25/22 12:00 Pulse 70 02/25/22 12:00 Resp 18 02/25/22 12:00 BP 135/71 02/25/22 12:00 Pulse Ox 97 02/25/22 12:00 O2 Del Method 02/25/22 12:00 02/25/22 02/25/22 02/25/22 06:59 14:59 22:59 Intake Total 150 / 1510 290 / 290 Output Total 200 / 2400 Balance -50 / -890 290 / 290 Weight last 48 hrs Weight 138.091 kg Weight 138.091 kg Physical Exam Const: COMMON NORMALS: patient oriented x3 HENMT: COMMON NORMALS: normocephalic and atraumatic HEAD & SCALP: normocephalic and atraumatic Resp: COMMON NORMALS: clear to auscultation bilaterally EFFORT & INSPECTION: Yes symmetric chest movement AUSCULTATION: clear to auscultation bilaterally Cardio: COMMON NORMALS: regular rate, regular rhythm, S1 normal heart sound present, S2 normal heart sound present, No gallops present (Cardio), No murmurs present (Cardio), No rub (Cardio) and Peripheral pulses 2+ throughout RATE: regular rate RHYTHM: regular rhythm HEART SOUNDS: S1 normal heart sound present and S2 normal heart sound present PERIPHERAL PULSES: Peripheral pulses 2+ throughout GI: COMMON NORMALS: Normal to inspection, nondistended, normoactive bowel sounds present, Soft to palpation, non-tender, No hepatosplenomegaly present and no masses AUSCULTATION: Yes normoactive bowel sounds PALPATION: Yes Soft to palpation and Yes No hepatosplenomegaly present RECTAL EXAM: Yes deferred Extremity: COMMON NORMALS: no clubbing, cyanosis or edema and no pedal edema OTHER: Chronic lower extremity lymphedema, Neuro: COMMON NORMALS: patient oriented x3 Urinary Catheter Management: Santana Latex: Cath Placed During This Visit: yes Reason for Continuing Indwelling Catheter: Other Urinary Catheter Date of Insertion: 02/21/22 Urinary Catheter Time of Insertion: 23:51 Data : 02/25/22 06:53 02/25/22 03:53 A&P Assessment and plan (1) Diabetic keto-acidosis: Diabetic ketoacidosis: Start patient on insulin drip as per DKA/HHS protocol with target blood sugars between 100-130 normal saline at 50 cc/h.Gentle hydration as patient is with significant LE edema We will switch to D5 NS once blood sugar less than 250. Monitor BMP every 6 hours. Once potassium less than 4 we will add 20 mg of potassium to IV fluids. Monitor saturations. Maintain over 90%. Transition to sliding scale and long-acting insulin once anion gap resolves. likely precipitated by cellulitis Other infectious w/up with CXR, UA, urine cx, blood cx, lactate Status: Acute (2) Cellulitis: LLE cellulitis with a background lymphedema Empiric zosyn and vancomycin Blood cx stat monitor for improvement Status: Acute Plan 76 year old male with PMH HTN,DM, chronic lymphedema brought to the ER with h/o recurrent falls. Currently being managed for. Assessment: DKA: Resolved Sepsis: Patient is febrile, has AQUILES, elevated bilirubin, elevated AST, lower extremity cellulitis Hypertension AQUILES on CKD Diabetes Chronic lymphedema History of recurrent fall Assessment: X-ray chest: No consolidative pulmonary infiltrates. 2D Echo : Normal left ventricular size and systolic function, EF 71% .No RWMA, ?Normal cardiac chamber sizes. No gross valvular abnormalities, No intracardiac masses No pericardial effusion. Blood culture: NTD Urine culture: MRSA PCR: Negative HbA1c 8.3 Monitor BMP Monitor Intake and output charting Avoid nephrotoxic Continue to hold, lisinopril, torsemide Currently is on Lantus, MDSSI Continue aspirin Plavix, statin Currently is empirically on Zosyn Vancomycin has been discontinued. physical therapy on board DVT prophylaxis: On Lovenox. CODE STATUS: Full code Disposition: Awaiting long term placement, due to significant weakness, and high risk of fall. Attestations Medical Necessity Statement*: Patient is to be in hospital for management of sepsis. Coding Level of Care Code Acute Photographic Plate Maker for sebastián Pabon Diagnoses Diabetic keto-acidosis E11.10 Cellulitis L03.90
[2022-02-25 17:14] LABS: Glucose Point of Care 238 mg/dL (70-110)
[2022-02-25 20:46] LABS: Glucose Point of Care 236 mg/dL (70-110)
[2022-02-25] MEDS: insulin glargine 100 units/1 mL 40 UNIT SUBCUT (21:56)
[2022-02-26] MEDS: piperacillin-tazobactam 3.375 GM in sodium chloride 0.9% (plus) 50 ML IV ×3 (00:45→17:30)
[2022-02-26 04:00] VITALS: BP 122/74; PULSE 64; RESP 18; TEMP 36.7; O2SAT 95
[2022-02-26 05:58] VITALS: PULSE 64
[2022-02-26] MEDS: enoxaparin 40 mg/0.4 mL Syringe SUBCUT (06:20)
[2022-02-26 06:42] LABS: Glucose Point of Care 158 mg/dL (70-110)
[2022-02-26 07:03] VITALS: BP 111/73; PULSE 64; RESP 16; TEMP 37; O2SAT 97
[2022-02-26] MEDS: insulin lispro 100 unit/1 mL SUBCUT ×4 (08:10→21:42)
[2022-02-26] MEDS: TORSEmide 20 mg Tablet 10 MG PO (08:10)
[2022-02-26] MEDS: atorvastatin 40 mg Tablet PO (08:10)
[2022-02-26] MEDS: aspirin 81 mg Chew Tablet PO (08:10)
[2022-02-26] MEDS: pantoprazole DR 40 mg Tablet PO (08:10)
[2022-02-26] MEDS: clopidogrel 75 mg Tablet PO (08:10)
[2022-02-26 09:43] LABS: Basophils % 0.4 %; Eosinophils # 0.1 10^3/uL (0.0-0.8); Eosinophils % 0.9 %; Hematocrit 39.3 % (42.0-52.0); Hemoglobin 13.2 g/dL (11.7-16.6); Lymphocytes # 0.8 10^3/uL (0.8-4.8); Lymphocytes % 11.7 %; Mean Corpuscular HGB Conc 33.6 g/dL (30.0-36.0); Mean Corpuscular Hemoglobin 32.9 pg (28.0-34.0); Mean Platelet Volume 10.9 fL (7.4-10.4); Monocytes # 0.5 10^3/uL (0.2-0.9); Monocytes % 7.8 %; Neutrophils # 5.32 10^3/uL (1.8-7.7); Nucleated Red Blood Cells % 0 %; Platelet Count 150 10^3/cmm (130-400); Red Blood Count 4.01 10^6/uL (4.1-5.3); Red Cell Distribution Width 12.7 % (12.1-15.1); White Blood Count 6.8 10^3/uL (4.0-10.0)
[2022-02-26 10:07] LABS: Anion Gap 12.3 (5-19); Blood Urea Nitrogen 16 mg/dL (8-23); Calcium 8.8 mg/dL (8.5-10.5); Carbon Dioxide 26 mmol/L (22-29); Chloride 105 mmol/L (98-107); Glucose 190 mg/dL (65-115); Osmolality Calculated 296 mOsm/kg (285-295); Potassium 3.3 mmol/L (3.5-5.1); Sodium 140 mmol/L (136-145)
[2022-02-26] MEDS: timolol 0.5% Op Soln 5 mL Btl 1 DROP EYE-BOTH (10:15)
[2022-02-26 11:22] LABS: Glucose Point of Care 191 mg/dL (70-110)
[2022-02-26 11:41] VITALS: BP 143/83; PULSE 58; RESP 18; TEMP 36.7; O2SAT 93
--- NOTE | 2022-02-26 15:19 | PC.SOCIAL ---
IMM Update pg 2 of IMM updated and reviewed w/ patient. Copy provided and Copy in chart dated and initialed.
[2022-02-26 15:35] VITALS: BP 137/72; PULSE 62; RESP 18; TEMP 36.7; O2SAT 94
--- NOTE | 2022-02-26 16:25 | PM.PN ---
Subjective Subjective: Patient was seen and examined this morning, no acute events overnight. Good urine output with torsemide. Medications: Medication Review Details: Generic Name Dose Route Start Last Admin Trade Name Rain PRN Reason Stop Dose Admin Acetaminophen 650 mg 02/21/22 22:34 02/23/22 18:14 Acetaminophen 32 5 Mg Tablet PO 650 mg Q6H PRN Administration MILD PAIN Aspirin 81 mg 02/22/22 09:00 02/24/22 08:29 Aspirin 81 Mg Ch ew Tablet PO 81 mg DAILY GELY Administration Atorvastatin Calci um 40 mg 02/22/22 09:00 02/24/22 08:29 Atorvastatin 40 Mg Tablet PO 40 mg DAILY GELY Administration Clopidogrel Bisulf ate 75 mg 02/22/22 09:00 02/24/22 08:29 Clopidogrel 75 M g Tablet PO 75 mg DAILY GELY Administration Enoxaparin Sodium 40 mg 02/22/22 06:00 02/24/22 06:32 Enoxaparin 40 Mg /0.4 Ml Syringe SUBCUT 40 mg Q24H GELY Administration Piperacillin Sod/T azobactam 50 mls @ 12.5 mls /hr 02/22/22 00:00 02/24/22 15:04 Sod 3.375 gm/ So dium Chloride IV 12.5 mls/hr Q8H GELY Administration Insulin Glargine 40 unit 02/23/22 21:00 02/23/22 20:33 Insulin Glargine 100 Units/1 Ml SUBCUT 40 unit BEDTIME GELY Administration Insulin Human Lisp ro 0 unit 02/23/22 18:00 02/24/22 17:30 Insulin Lispro 1 00 Unit/1 Ml SUBCUT 8 unit WM&BEDTIME GELY Administration Protocol Pantoprazole Sodiu m 40 mg 02/22/22 09:00 02/24/22 08:[address] 40 Mg Tablet PO 40 mg DAILY GELY Administration Timolol Maleate 1 drop 02/22/22 09:00 02/24/22 08:29 Timolol 0.5% Op Soln 5 Ml Btl EYE-BOTH 1 drop DAILY GELY Administration Vitals/I&O/Wt Last Vital Signs Temp 98.0 F 02/26/22 15:35 Pulse 62 02/26/22 15:35 Resp 18 02/26/22 15:35 BP 137/72 02/26/22 15:35 Pulse Ox 94 02/26/22 15:35 O2 Del Method 02/26/22 15:35 02/26/22 02/26/22 02/26/22 06:59 14:59 22:59 Intake Total 730 / 1070 410 / 410 Output Total 350 / 3275 Balance 380 / -2205 410 / 410 Weight last 48 hrs Weight 62.868 kg Weight 138.091 kg Physical Exam Const: COMMON NORMALS: patient oriented x3 HENMT: COMMON NORMALS: normocephalic and atraumatic HEAD & SCALP: normocephalic and atraumatic Resp: COMMON NORMALS: clear to auscultation bilaterally EFFORT & INSPECTION: Yes symmetric chest movement AUSCULTATION: clear to auscultation bilaterally Cardio: COMMON NORMALS: regular rate, regular rhythm, S1 normal heart sound present, S2 normal heart sound present, No gallops present (Cardio), No murmurs present (Cardio), No rub (Cardio) and Peripheral pulses 2+ throughout RATE: regular rate RHYTHM: regular rhythm HEART SOUNDS: S1 normal heart sound present and S2 normal heart sound present PERIPHERAL PULSES: Peripheral pulses 2+ throughout GI: COMMON NORMALS: Normal to inspection, nondistended, normoactive bowel sounds present, Soft to palpation, non-tender, No hepatosplenomegaly present and no masses AUSCULTATION: Yes normoactive bowel sounds PALPATION: Yes Soft to palpation and Yes No hepatosplenomegaly present RECTAL EXAM: Yes deferred Extremity: COMMON NORMALS: no clubbing, cyanosis or edema and no pedal edema OTHER: Chronic lower extremity lymphedema, Neuro: COMMON NORMALS: patient oriented x3 Urinary Catheter Management: Santana Latex: Cath Placed During This Visit: yes Reason for Continuing Indwelling Catheter: Accurate Measurement of Urinary Output in Critically Ill Patients Urinary Catheter Date of Insertion: 02/21/22 Urinary Catheter Time of Insertion: 23:51 Data : 02/26/22 09:25 02/26/22 09:25 Micro: Microbiology 02/24/22 15:01 Urine Culture - Final Urine Catheterized A&P Assessment and plan (1) Diabetic keto-acidosis: Diabetic ketoacidosis: Start patient on insulin drip as per DKA/HHS protocol with target blood sugars between 100-130 normal saline at 50 cc/h.Gentle hydration as patient is with significant LE edema We will switch to D5 NS once blood sugar less than 250. Monitor BMP every 6 hours. Once potassium less than 4 we will add 20 mg of potassium to IV fluids. Monitor saturations. Maintain over 90%. Transition to sliding scale and long-acting insulin once anion gap resolves. likely precipitated by cellulitis Other infectious w/up with CXR, UA, urine cx, blood cx, lactate Status: Acute (2) Cellulitis: LLE cellulitis with a background lymphedema Empiric zosyn and vancomycin Blood cx stat monitor for improvement Status: Acute Plan 76 year old male with PMH HTN,DM, chronic lymphedema brought to the ER with h/o recurrent falls. Currently being managed for. Assessment: DKA: Resolved Sepsis: Patient is febrile, has AQUILES, elevated bilirubin, elevated AST, lower extremity cellulitis Hypertension AQUILES on CKD Diabetes Chronic lymphedema History of recurrent fall Assessment: X-ray chest: No consolidative pulmonary infiltrates. 2D Echo : Normal left ventricular size and systolic function, EF 71% .No RWMA, ?Normal cardiac chamber sizes. No gross valvular abnormalities, No intracardiac masses No pericardial effusion. Blood culture: NTD ESR: CRP: Follow left lower extremity CT with contrast: Urine culture: NTD MRSA PCR: Negative HbA1c 8.3 Monitor BMP Monitor Intake and output charting Avoid nephrotoxic Continue to hold, lisinopril Torsemide has been resumed Currently is on Lantus, MDSSI Continue aspirin Plavix, statin Currently is empirically on Zosyn Vancomycin has been discontinued. physical therapy on board DVT prophylaxis: On Lovenox. CODE STATUS: Full code Disposition: Awaiting prison placement, due to significant weakness, and high risk of fall. Attestations Medical Necessity Statement*: Patient is awaiting prison placement, pending prior op. Coding Level of Care Code Acute Agricultural Science Professor for Chg Fwd Diagnoses Diabetic keto-acidosis E11.10 Cellulitis L03.90
--- NOTE | 2022-02-26 16:28 | CTR_ITS ---
PROCEDURE INFORMATION: Exam: CT Left Lower Extremity With Contrast; Lower Leg Exam date and time: 02/26/2022 6:00 PM Age: 76 years old Clinical indication: Cellulitis and swelling, leg or foot; Lower leg; Left; Additional info: R/O possible hardware infection/ osteo TECHNIQUE: Imaging protocol: CT of the Left lower extremity with intravenous contrast was performed. Exam focused on the lower leg. Radiation optimization: All CT scans at this facility use at least one of these dose optimization techniques: automated exposure control; mA and/or kV adjustment per patient size (includes targeted exams where dose is matched to clinical indication); or iterative reconstruction. Contrast material: OMNI 350; Contrast volume: 80 ml; Contrast route: INTRAVENOUS (IV); COMPARISON: No relevant prior studies available. RADIATION DOSE METRICS: Total DLP (mGy-cm): 603.97 FINDINGS: Bones/joints: Negative for acute fracture. Unremarkable osseous alignment. Negative for aggressive osteolytic lesion. Negative for periosteal bone reaction. Residual surgical screws cannulating distal tibia and fibula without loosening. Soft tissues: Extensive diffuse soft tissue edema. Negative for soft tissue gas. CT/CT lower leg LT w con [id number] IMPRESSION: 1. Diffuse non-specific left lower extremity cellulitis changes. 2. No convincing CT scan evidence of osteomyelitis.
[2022-02-26 17:15] LABS: Glucose Point of Care 217 mg/dL (70-110)
[2022-02-26] MEDS: sodium chloride 0.9% 500 ML IV (17:15)
[2022-02-26] MEDS: iohexol 350 mg/mL 100 mL Btl IV (18:19)
[2022-02-26 20:00] VITALS: BP 131/82; BP 132/82; PULSE 68; RESP 22; TEMP 37.1; O2SAT 95
[2022-02-26] MEDS: insulin glargine 100 units/1 mL 40 UNIT SUBCUT (21:36)
[2022-02-26 22:18] LABS: Glucose Point of Care 215 mg/dL (70-110)
[2022-02-27] VITALS: BP 129/75; PULSE 60; RESP 17; TEMP 36.8; O2SAT 94
[2022-02-27] MEDS: piperacillin-tazobactam 3.375 GM in sodium chloride 0.9% (plus) 50 ML IV ×2 (00:49→08:32)
[2022-02-27 03:32] VITALS: PULSE 60
--- NOTE | 2022-02-27 03:55 | NUR.SHIFT ---
Patient in bed resting, tele in place, bed low and locked, call light and personal items in reach, bed bath was given and patient requested cope to be shaved, bedding changed, no other needs during assessment
[2022-02-27 04:00] VITALS: BP 123/69; PULSE 68; RESP 19; TEMP 37.3; O2SAT 94
[2022-02-27 05:33] LABS: Basophils % 0.6 %; Eosinophils # 0.1 10^3/uL (0.0-0.8); Eosinophils % 1.5 %; Hematocrit 36.7 % (42.0-52.0); Lymphocytes # 0.9 10^3/uL (0.8-4.8); Lymphocytes % 16.2 %; Mean Corpuscular HGB Conc 35.4 g/dL (30.0-36.0); Mean Corpuscular Hemoglobin 33.2 pg (28.0-34.0); Mean Corpuscular Volume 93.9 fl (80-94); Mean Platelet Volume 10.6 fL (7.4-10.4); Monocytes # 0.4 10^3/uL (0.2-0.9); Monocytes % 8.3 %; Neutrophils # 3.82 10^3/uL (1.8-7.7); Neutrophils % 71.7 %; Nucleated Red Blood Cells % 0 %; Platelet Count 166 10^3/cmm (130-400); Red Blood Count 3.91 10^6/uL (4.1-5.3); Red Cell Distribution Width 12.5 % (12.1-15.1); White Blood Count 5.3 10^3/uL (4.0-10.0)
[2022-02-27] MEDS: enoxaparin 40 mg/0.4 mL Syringe SUBCUT (05:45)
[2022-02-27 05:53] LABS: Erythrocyte Sedimentation Rate 33 mm/hr (0-10)
[2022-02-27 06:00] VITALS: PULSE 40
[2022-02-27 06:01] LABS: Alanine Aminotransferase 28 U/L (0-41); Albumin Level 2.1 g/dL (3.5-5.2); Alkaline Phosphatase 80 IU/L (40-130); Anion Gap 14.3 (5-19); Aspartate Amino Transferase 30 U/L (0-40); Blood Urea Nitrogen 14 mg/dL (8-23); C Reactive Protein 87.7 mg/L (0.0-4.9); Calcium 8.7 mg/dL (8.5-10.5); Carbon Dioxide 25 mmol/L (22-29); Chloride 104 mmol/L (98-107); Globulin 3.6 g/dL (1.3-4.6); Glucose 194 mg/dL (65-115); Osmolality Calculated 296 mOsm/kg (285-295); Potassium 3.3 mmol/L (3.5-5.1); Sodium 140 mmol/L (136-145); Total Bilirubin 0.9 mg/dL (0.15-1.2); Total Protein 5.7 g/dL (6.6-8.7)
[2022-02-27 06:14] LABS: Glucose Point of Care 181 mg/dL (70-110)
[2022-02-27 08:00] VITALS: BP 147/82; PULSE 50; RESP 16; TEMP 36.6; O2SAT 96
[2022-02-27] MEDS: TORSEmide 20 mg Tablet 10 MG PO (08:32)
[2022-02-27] MEDS: pantoprazole DR 40 mg Tablet PO (08:32)
[2022-02-27] MEDS: timolol 0.5% Op Soln 5 mL Btl 1 DROP EYE-BOTH (08:32)
[2022-02-27] MEDS: insulin lispro 100 unit/1 mL SUBCUT (08:32)
[2022-02-27] MEDS: aspirin 81 mg Chew Tablet PO (08:33)
[2022-02-27] MEDS: atorvastatin 40 mg Tablet PO (08:33)
[2022-02-27] MEDS: clopidogrel 75 mg Tablet PO (08:33)
[2022-02-27] MEDS: potassium chloride ER 20 mEq Tablet 40 MEQ PO (08:33)
--- NOTE | 2022-02-27 10:24 | PC.NURSE ---
report called to Cecilia MACE at [facility].
--- NOTE | 2022-02-27 10:26 | PC.NURSE ---
PRESCRIPTIONS CALLED INTO [facility] PER .
--- NOTE | 2022-02-27 11:58 | P.DS_ITS ---
Discharge Providers Date of Admission: 02/21/22 23:48 Date of Discharge: February 27, 2022 Attending Provider at Admission: Deepa French MD Attending Provider at Discharge: Mj Gilbert MD Primary Care Provider: Radha Baer MD Diagnoses at Discharge Discharge Diagnosis (1) Diabetic keto-acidosis: Status: Acute (2) Cellulitis: Status: Acute Reason for Visit Reason for Visit: WEAKNESS; FALL Hospital Course Hospital Course ?76 year old male with PMH HTN,DM, chronic lymphedema brought to the ER today with h/o recurrent falls, further work up during hospital stay reveled that he is in DKA , Sepsis: 2/2 lower extremity cellulitis, AQUILES on CKD, Chronic lymphedema, patient was kept on DKA Protocol and was later transitioned to long and short acting insulin once dka got resolved, for his sepsis he was kept on br oad spectrum abxs, 2D Echo : Normal left ventricular size and systolic function, EF 71% .No RWMA,? ?Normal cardiac chamber sizes. No gross valvular abnormalities, No intracardiac masses No pericardial effusion. Blood culture: Negative, urine culture negative, MRSA PCR :Negative, ?CT lower leg LT w con?: Diffuse non-specific left lower extremity cellulitis changes. He was discharged on PO Augmentin as well as levofloxacin and has been asked to follow with wound care Clinic, for his AQUILES it responded well to I.V Hydration and avoiding obvious nephrtoxics.AQUILES has resolved at the time of discharge.He was continued to be managed for his other co morbid conditions.He has responded well to above medical management and is being discharged in stable condition to SNF due to his h/o recurrent fall and difficulty with ambulation. Patient will continue to follow his pcp as outpatient. Physical Exam Const: COMMON NORMALS: patient oriented x3 HENMT: COMMON NORMALS: normocephalic and atraumatic HEAD & SCALP: normocephalic and atraumatic Resp: COMMON NORMALS: clear to auscultation bilaterally EFFORT & INSPECTION: Yes symmetric chest movement AUSCULTATION: clear to auscultation bilaterally Cardio: COMMON NORMALS: regular rate, regular rhythm, S1 normal heart sound present, S2 normal heart sound present, No gallops present (Cardio), No murmurs present (Cardio), No rub (Cardio) and Peripheral pulses 2+ throughout RATE: regular rate RHYTHM: regular rhythm HEART SOUNDS: S1 normal heart sound present and S2 normal heart sound present PERIPHERAL PULSES: Peripheral pulses 2+ throughout GI: COMMON NORMALS: Normal to inspection, nondistended, normoactive bowel sounds present, Soft to palpation, non-tender, No hepatosplenomegaly present and no masses AUSCULTATION: Yes normoactive bowel sounds PALPATION: Yes Soft to palpation and Yes No hepatosplenomegaly present RECTAL EXAM: Yes deferred Extremity: COMMON NORMALS: no clubbing, cyanosis or edema and no pedal edema OTHER: Chronic lower extremity lymphedema, with superimposed redness, and single blister. Neuro: COMMON NORMALS: patient oriented x3 Urinary Catheter Management: Santana Latex: Cath Placed During This Visit: yes Reason for Continuing Indwelling Catheter: Accurate Measurement of Urinary Output in Critically Ill Patients Urinary Catheter Date of Insertion: 02/21/22 Urinary Catheter Time of Insertion: 23:51 Discharge Data Studies Completed and Pending Completed Studies During Hospitalization Category Date Time Status CT lower leg LT w con [id number] Routine Cat Scan 02/26/22 16:28 Completed XR chest 1V portable [id number] Urgent Exams 02/21/22 18:35 Completed CV. echo complete* [id number] Routine Ultrasound 02/22/22 22:34 Completed Pending at discharge Category Date Time Status CBC Auto Diff [Complete Blood Count w/Auto] AM LABS Lab 02/28/22 04:00 Ordered CBC Auto Diff [Complete Blood Count w/Auto] AM LABS Lab 03/01/22 04:00 Ordered CMP [Comprehensive Metabolic Panel] AM LABS Lab 02/28/22 04:00 Ordered CMP [Comprehensive Metabolic Panel] AM LABS Lab 03/01/22 04:00 Ordered Radiology Impressions Chest X-Ray 02/21/22 18:35 IMPRESSION: 1. Mild cardiomegaly is present. 2. No acute abnormality demonstrated. Lower Extremity CT 02/26/22 16:28 IMPRESSION: 1. Diffuse non-specific left lower extremity cellulitis changes. 2. No convincing CT scan evidence of osteomyelitis. Laboratory Results WBC 5.3 10^3/uL (4.0-10.0) 02/27/22 05:08 Corrected WBC Cancelled 02/25/22 05:58 RBC 3.91 10^6/uL (4.1-5.3) L 02/27/22 05:08 Hgb 13.0 g/dL (11.7-16.6) 02/27/22 05:08 Hct 36.7 % (42.0-52.0) L 02/27/22 05:08 MCV 93.9 fl (80-94) 02/27/22 05:08 MCH 33.2 pg (28.0-34.0) 02/27/22 05:08 MCHC 35.4 g/dL (30.0-36.0) D 02/27/22 05:08 RDW 12.5 % (12.1-15.1) 02/27/22 05:08 Plt Count 166 10^3/cmm (130-400) 02/27/22 05:08 MPV 10.6 fL (7.4-10.4) H 02/27/22 05:08 Gran % Cancelled 02/25/22 05:58 Neut % (Auto) 71.7 % 02/27/22 05:08 Lymph % (Auto) 16.2 % 02/27/22 05:08 [place] % (Auto) 8.3 % 02/27/22 05:08 Eos % (Auto) 1.5 % 02/27/22 05:08 Baso % (Auto) 0.6 % 02/27/22 05:08 Neut # (Auto) 3.82 10^3/uL (1.8-7.7) 02/27/22 05:08 Lymph # (Auto) 0.9 10^3/uL (0.8-4.8) 02/27/22 05:08 [place] # (Auto) 0.4 10^3/uL (0.2-0.9) 02/27/22 05:08 Eos # (Auto) 0.1 10^3/uL (0.0-0.8) 02/27/22 05:08 Baso # (Auto) 0.0 10^3/uL (0.0-0.1) 02/27/22 05:08 Absolute Gran (auto) Cancelled 02/25/22 05:58 Nucleated RBC % (auto) 0 % 02/27/22 05:08 Nucleated RBCs # 0.0 /100WBC 02/27/22 05:08 ESR 33 mm/hr (0-10) H 02/27/22 05:08 Specimen Type Arterial 02/21/22 21:28 Sample Site Radial, left 07/31/22 21:28 ABG pH 7.43 (7.35-7.45) 02/21/22 21:28 ABG pCO2 25.1 mmHg (35-45) L 02/21/22 21:28 ABG pO2 71.6 mmHg (80.0-100.0) L 02/21/22 21:28 ABG HCO3 16.5 mmol/L (22-26) L 02/21/22 21:28 ABG O2 Saturation 95.6 02/21/22 21:28 ABG Base Excess -5.8 mmol/L (-2.0-2.0) L 02/21/22 21:28 Blaze Test Pos 02/21/22 21:28 A-a O2 Gradient 6.0 mmHg (5-10) 02/21/22 21:28 Hematocrit 48.9 % (42-52) 02/21/22 21:28 Hgb O2 Saturation 93.6 % (95-100) L 02/21/22 21:28 Carboxyhemoglobin 1.3 %THgb (0.4-20.1) 02/21/22 21:28 Methemoglobin 0.8 % (0.4-1.5) 02/21/22 21:28 Total Hemoglobin 16.0 g/dL (14-18) 02/21/22 21:28 Sodium 135.0 mmol/L (131-143) 02/21/22 21:28 Potassium 4.2 mmol/L (3.5-5.0) 02/21/22 21:28 Glucose 338.0 mg/dL (70-115) H 02/21/22 21:28 Ionized Calcium 1.2 mmol/L (1.1-1.4) 02/21/22 21:28 O2 Delivery Device None 02/21/22 21:28 Component Lab Tech ID Hensa 02/21/22 21:28 Sodium 140 mmol/L (136-145) 02/27/22 05:08 Potassium 3.3 mmol/L (3.5-5.1) L 02/27/22 05:08 Chloride 104 mmol/L (98-107) 02/27/22 05:08 Carbon Dioxide 25 mmol/L (22-29) 02/27/22 05:08 Anion Gap 14.3 (5-19) 02/27/22 05:08 BUN 14 mg/dL (8-23) 02/27/22 05:08 Creatinine 0.6 mg/dL (0.7-1.2) L 02/27/22 05:08 GFR Calculation Not Reportable 02/27/22 05:08 Glucose 194 mg/dL (65-115) H 02/27/22 05:08 POC Glucose 181 mg/dL (70-110) H 02/27/22 06:03 Estimat Average Glucose 192 02/23/22 03:06 Hemoglobin A1c 8.3 % (4.0-6.0) H 02/23/22 03:06 Calculated Osmolality 296 mOsm/kg (285-295) H 02/27/22 05:08 Lactic Acid 4.8 mmol/L (0.5-2.2) H* 02/22/22 02:10 Lactic Acid (Sepsis) 3.9 mmol/L (0.5-2.2) H 02/22/22 05:50 Calcium 8.7 mg/dL (8.5-10.5) 02/27/22 05:08 Magnesium 1.6 mg/dL (1.7-2.3) L 02/21/22 20:02 Total Bilirubin 0.9 mg/dL (0.15-1.2) 02/27/22 05:08 AST 30 U/L (0-40) 02/27/22 05:08 ALT 28 U/L (0-41) 02/27/22 05:08 Alkaline Phosphatase 80 IU/L (40-130) 02/27/22 05:08 Troponin T Baseline 59 ng/L (0-15) H 02/21/22 18:07 Troponin T 120 Minute 50.50 ng/L (0-15) H 02/21/22 20:02 Delta Troponin T -8.50 ABS# (0-10) L 02/21/22 20:02 C-Reactive Protein 87.7 mg/L (0.0-4.9) H 02/27/22 05:08 Total Protein 5.7 g/dL (6.6-8.7) L 02/27/22 05:08 Albumin 2.1 g/dL (3.5-5.2) L 02/27/22 05:08 Globulin 3.6 g/dL (1.3-4.6) 02/27/22 05:08 Vancomycin Trough 8.9 ug/mL (10-15) L 02/24/22 05:26 Serum Ketones Negative (Negative) 02/21/22 18:07 SARS-CoV-2 Ag (Rapid) Negative (Negative) 02/25/22 12:02 Vitals Last Vital Signs Temp 97.9 F 02/27/22 08:00 Pulse 50 L 02/27/22 08:00 Resp 16 02/27/22 08:00 BP 147/82 02/27/22 08:00 Pulse Ox 96 02/27/22 08:00 O2 Del Method 02/27/22 08:00 Discharge Plan Discharge Patient Disposition: Home Condition: Stable Prescriptions: New Augmentin 500-125 mg tablet 1 tab PO BID Qty: 20 0RF levofloxacin 500 mg tablet 500 mg PO DAILY 7 Days Qty: 7 0RF Continued atorvastatin 40 mg tablet 40 mg PO DAILY lisinopril 20 mg tablet 10 mg PO DAILY isosorbide mononitrate 30 mg tablet extended release 24 hr 30 mg PO DAILY Novolin 70/30 U-100 Insulin 100 unit/mL (70-30) suspension 56 unit SUBCUT TID torsemide 10 mg tablet 10 mg PO DAILY clopidogrel 75 mg tablet 75 mg PO DAILY tramadol 50 mg tablet 50 mg PO Q4H PRN (Reason: Pain) aspirin 81 mg Tablet,Chewable 81 mg PO DAILY timolol maleate 0.5 % drops 1 drp ophthalmic (eye) DAILY Rx Instructions: both eyes potassium chloride 20 mEq tablet extended release 20 meq PO DAILY Discharge Orders: Discharge Order (Routine); Ordered 02/27/22 Ordered By: Mj Gilbert Referrals: [facility] [Outside] Radha Baer MD [Primary Care Provider] - 1 week [facility], [Staff Physician] - 1 week Discharge Diet: Diabetic Patient Instructions: Amoxicillin/Clavulanate Potassium (By mouth), Levofloxacin (By mouth), Cellulitis (GEN), Opioid Safety Discharge Attestations Time Spent in Discharge Care*: less than 30 min Quality Metrics Clinical Quality Measures [ No reported AMI, CVA or VTE this stay] Coding Level of Care Code Acute Chg FW DC note Exam Detailed Diagnoses Diabetic keto-acidosis E11.10 Cellulitis L03.90
[2022-02-27 12:14] LABS: Glucose Point of Care 209 mg/dL (70-110)
--- NOTE | 2022-02-27 12:45 | PC.NURSE ---
patient assisted onto [facility] stretcher and transported out of facility. Mag[facility] [place] notified that patient is on the way.
[2022-02-27 12:47] VITALS: BP 147/82; PULSE 50; RESP 16; TEMP 36.6; O2SAT 96
== END 2022-02-27 12:48 | disposition skilled nursing facility (03) | DRG 871 ==
LOC: ER 20:23 → ICU 23:49 → MEDSURG 02-23 22:19
PROVIDERS: Admitting Provider Student in an Organized Health Care Education/Training Program; Emergency Provider Emergency Medicine; PCP Family Medicine; Visit Provider Internal Medicine
DX: A41.9 Sepsis, unspecified organism (principal); E11.10 Type 2 diabetes mellitus with ketoacidosis without coma; L03.116 Cellulitis of left lower limb; N17.9 Acute kidney failure, unspecified; E11.22 Type 2 diabetes mellitus with diabetic chronic kidney disease; I12.9 Hypertensive chronic kidney disease with stage 1 through stage 4 chronic kidney disease, or unspecified chronic kidney disease; N18.9 Chronic kidney disease, unspecified; R29.6 Repeated falls; I89.0 Lymphedema, not elsewhere classified; Z79.4 Long term (current) use of insulin; Z79.02 Long term (current) use of antithrombotics/antiplatelets; Z79.891 Long term (current) use of opiate analgesic; Z79.82 Long term (current) use of aspirin
CPT/HCPCS: 36415; 36416; 36600; 51702; 71045; 73701; 80048; 80051; 80053; 80202; 82009; 82330; 82805; 82962; 83036; 83605; 83735; 84484; 85025; 85651; 86140; 87040; 87086; 87426; 87641; 93005; 93306; 94760; 96365; 96366; 96367; 96372; 96375; 97110; 97116; 97162; 97167; 97530; 97535; 99285; J1650; J1815; J2543; J3370; J7040; J7050; Q9967

== ENCOUNTER 2024-07-02 22:33 | Emergency (ER) | payer MEDICARE, SELFPAY ==
[2024-07-02 22:35] VITALS: BP 138/86; PULSE 76; RESP 18; TEMP 37.3; O2SAT 97; BMI 35.6
--- NOTE | 2024-07-02 22:42 | CTR_ITS ---
PROCEDURE INFORMATION: Exam: CT Head Without Contrast Exam date and time: 07/02/2024 10:51 PM Age: 79 years old Clinical indication: Injury or trauma; Fall; Blunt trauma (contusions or hematomas); Without loss of consciousness; Additional info: Fall left spiritism trauma on plavix TECHNIQUE: Imaging protocol: Computed tomography of the head without contrast. Radiation optimization: All CT scans at this facility use at least one of these dose optimization techniques: automated exposure control; mA and/or kV adjustment per patient size (includes targeted exams where dose is matched to clinical indication); or iterative reconstruction. COMPARISON: No relevant prior studies available. RADIATION DOSE METRICS: Total DLP (mGy-cm): 2559.58 FINDINGS: Limitations: Suboptimal image quality due to motion artifact. Brain: Moderate generalized cortical volume loss. Periventricular and subcortical white matter hypodensities likely represent chronic small vessel ischemic changes. Right parietal encephalomalacia. No acute intracranial hemorrhage or discrete extra-axial fluid collection. No mass effect or midline shift. Cerebral ventricles: No ventriculomegaly. Paranasal sinuses: Visualized sinuses are unremarkable. No fluid levels. Mastoid air cells: Visualized mastoid air cells are well aerated. Bones: Unremarkable. No acute fracture. Soft tissues: Unremarkable. CT/CT head wo con* [id number] IMPRESSION: No definite acute intracranial findings
--- NOTE | 2024-07-02 22:42 | XRR_ITS ---
PROCEDURE INFORMATION: Exam: XR Left Elbow Exam date and time: 07/02/2024 11:09 PM Age: 79 years old Clinical indication: Injury or trauma; Fall; Blunt trauma (contusions or hematomas); Elbow; Left; Additional info: Fall pain TECHNIQUE: Imaging protocol: Radiologic exam of the left elbow. Views: 3 or more views. COMPARISON: No relevant prior studies available. FINDINGS: Bones/joints: No acute fracture or dislocation. Mild degenerative changes of the elbow. No definite joint effusion. Tiny olecranon spur. Soft tissues: Normal. XR/XR elbow LT min 3V* [id number] IMPRESSION: No acute osseous findings
--- NOTE | 2024-07-02 23:13 | ED_ITS ---
HPI - Fall 2 General: Chief Complaint: Fall Stated Complaint: AMS Time Seen by Provider: 07/02/24 22:36 History of Present Illness: Patient presents to the ER with complaints of a fall at 1730 tonight. Patient hit his left alevism and his left elbow. Patient is on hospice for end-stage CHF. Patient is also on Plavix. Related Data Home Medications Medication Instructions Recorded Confirmed aspirin 81 mg chewable tablet 81 mg PO DAILY 02/21/22 02/21/22 atorvastatin 40 mg tablet 40 mg PO DAILY 02/21/22 02/21/22 clopidogrel 75 mg tablet 75 mg PO DAILY 02/21/22 02/21/22 insulin human U-100 NPH-regulr 56 unit SUBCUT TID 02/21/22 02/21/22 70-30 mix 100 unit/mL subcutaneous susp (Novolin 70/30 U-100 Insulin) isosorbide mononitrate 30 mg 30 mg PO DAILY 02/21/22 02/21/22 tablet,extended release 24 hr lisinopril 20 mg tablet 10 mg PO DAILY 02/21/22 02/21/22 potassium chloride 20 mEq 20 meq PO DAILY 02/21/22 02/21/22 tablet,extended release timolol maleate 0.5 % eye drops 1 drp ophthalmic (eye) DAILY 02/21/22 02/21/22 torsemide 10 mg tablet 10 mg PO DAILY 02/21/22 02/21/22 tramadol 50 mg tablet 50 mg PO Q4H PRN Pain 02/21/22 02/21/22 Previous Rx's Medication Instructions Recorded amoxicillin 500 mg-potassium 1 tab PO BID #20 tabs 02/27/22 clavulanate 125 mg tablet (Augmentin) Allergies Allergy/AdvReac Type Severity Reaction Status Date / Time No Known Allergies Allergy Verified 07/02/24 22:41 Review of Systems 2 General: Reports: 10 or more systems reviewed and unremarkable except in HPI and below PFSH ED 2 PFSH: Medical History Lymphedema Hypertension Diabetes mellitus Elevated troponin Diabetic keto-acidosis Physical Exam 2 Const: COMMON NORMALS: no acute distress, average body habitus, patient oriented x3, no limitations, healthy appearing, alert and well nourished HENMT: COMMON NORMALS: normocephalic, hearing grossly normal bilaterally, external ears normal, Normal external nose present and moist oral mucous membranes; head/scalp not atraumatic (Small abrasion and ecchymotic area on left alevism region) HEAD & SCALP: normocephalic; not atraumatic (Small abrasion and ecchymotic area on left alevism region) N OSE: Normal external nose present EXTERNAL EAR: Yes external ears normal Neck/C-Spine: COMMON NORMALS: full ROM, no lymphadenopathy, supple, no meningeal signs, no JVD and Thyroid normal THYROID: Thyroid normal Chest: COMMONS NORMALS: normal inspection of the chest and normal palpation of entire chest wall Resp: COMMON NORMALS: normal respiratory effort, No retractions, No use of accessory muscles and clear to auscultation bilaterally AUSCULTATION: clear to auscultation bilaterally Cardio: COMMON NORMALS: no JVD, regular rate, regular rhythm, S1 normal heart sound present, S2 normal heart sound present, No gallops present (Cardio), No clicks present (Cardio), No murmurs present (Cardio) and No rub (Cardio) R ATE: regular rate RHYTHM: regular rhythm HEART SOUNDS: S1 normal heart sound present and S2 normal heart sound present GI: COMMON NORMALS: Normal to inspection, nondistended, normoactive bowel sounds present, Soft to palpation, non-tender, No hepatosplenomegaly present and no masses PALPATION: Yes Soft to palpation and Yes No hepatosplenomegaly present Extremity: NARRATIVE EXTREMITY EXAM: Left elbow covered with bandage. No obvious deformity. Full range of motion. Neuro: COMMON NORMALS: patient oriented x3 SENSORIUM/ORIENTATION: Yes alert MENINGEAL SIGNS: Yes no meningeal signs Course 2 Vital Signs: Vital signs: Vital Signs Temperature 99.2 F 07/02/24 22:35 Pulse Rate 86 07/02/24 23:38 Respiratory Rate 18 07/02/24 22:35 Blood Pressure 151/78 07/02/24 23:38 Pulse Oximetry 98 07/02/24 23:38 Oxygen Delivery Me thod Room Air 07/02/24 22:35 MDM - Fall Medical Decision Making Patient is on blood thinner fell and hit his head and his left elbow. Left elbow x-ray negative CT both negative. Patient be discharged back to his facility. Medical Records I reviewed the patient's medical records. Lab Data I reviewed the patient's lab results. 07/02/24 23:23 07/02/24 23:23 Radiology Impressions Elbow X-Ray 07/02/24 22:42 IMPRESSION: No acute osseous findings Head CT 07/02/24 22:42 IMPRESSION: No definite acute intracranial findings Laboratory Results WBC 8.42 10^3/uL (3.29-11.43) 07/02/24 23:23 RBC 5.10 10^6/uL (3.85-5.65) 07/02/24 23:23 Hgb 16.50 g/dL (11.27-16.99) 07/02/24 23:23 Hct 49.5 % (37-53) 07/02/24 23:23 MCV 97.1 fl (82-101) 07/02/24 23:23 MCH 32.4 pg (27-33) 07/02/24 23:23 MCHC 33.3 g/dL (30-55) 07/02/24 23:23 RDW 12.8 % (12.1-15.1) 07/02/24 23:23 Plt Count 151 10^3/cmm (157-399) L 07/02/24 23:23 MPV 9.8 fL (7.4-10.4) 07/02/24 23:23 Neut % (Auto) 85.3 % 07/02/24 23:23 Lymph % (Auto) 4.9 % 07/02/24 23:23 Parker % (Auto) 6.1 % 07/02/24 23:23 Eos % (Auto) 2.9 % 07/02/24 23:23 Baso % (Auto) 0.4 % 07/02/24 23:23 Neut # (Auto) 7.20 10^3/uL (1.8-7.7) 07/02/24 23:23 Lymph # (Auto) 0.4 10^3/uL (0.8-4.8) L 07/02/24 23:23 Parker # (Auto) 0.5 10^3/uL (0.2-0.9) 07/02/24 23:23 Eos # (Auto) 0.2 10^3/uL (0.0-0.8) 07/02/24 23:23 Baso # (Auto) 0.0 10^3/uL (0.0-0.1) 07/02/24 23:23 Nucleated RBC % (auto) 0 % 07/02/24 23:23 Nucleated RBCs # 0.0 /100WBC 07/02/24 23:23 PT 13.70 SECONDS (12.1-14.9) 07/02/24 23:23 INR 1.02 (0.8-1.2) 07/02/24 23:23 Sodium 139 mmol/L (136-145) 07/02/24 23:23 Potassium 5.1 mmol/L (3.5-5.1) 07/02/24 23:23 Chloride 104 mmol/L (98-107) 07/02/24 23:23 Carbon Dioxide 26 mmol/L (22-29) 07/02/24 23:23 Anion Gap 14.1 (5-19) 07/02/24 23:23 BUN 18 mg/dL (8-23) 07/02/24 23:23 Creatinine 1.1 mg/dL (0.7-1.2) 07/02/24 23:23 GFR Calculation Not Reportable 07/02/24 23:23 Glucose 162 mg/dL (65-115) H 07/02/24 23:23 Calculated Osmolality 293 mOsm/kg (285-295) 07/02/24 23:23 Calcium 9.9 mg/dL (8.5-10.5) 07/02/24 23:23 Magnesium 1.8 mg/dL (1.7-2.3) 07/02/24 23:23 Total Bilirubin 1.1 mg/dL (0.15-1.2) 07/02/24 23:23 AST 17 U/L (0-40) 07/02/24 23:23 ALT 15 U/L (0-41) 07/02/24 23:23 Alkaline Phosphatase 97 U/L (40-130) 07/02/24 23:23 Total Protein 7.1 g/dL (6.6-8.7) 07/02/24 23:23 Albumin 3.9 g/dL (3.5-5.2) 07/02/24 23:23 Globulin 3.2 g/dL (1.3-4.6) 07/02/24 23:23 All radiology interpretation(s) finalized by discharge Discharge Plan Discharge Patient Disposition: Home Clinical Impression: Fall, Elbow pain, left, Contusion of face Condition: Stable Prescriptions: No Action atorvastatin 40 mg tablet 40 mg PO DAILY lisinopril 20 mg tablet 10 mg PO DAILY isosorbide mononitrate 30 mg tablet extended release 24 hr 30 mg PO DAILY Novolin 70/30 U-100 Insulin 100 unit/mL (70-30) suspension 56 unit SUBCUT TID torsemide 10 mg tablet 10 mg PO DAILY clopidogrel 75 mg tablet 75 mg PO DAILY tramadol 50 mg tablet 50 mg PO Q4H PRN (Reason: Pain) aspirin 81 mg Tablet,Chewable 81 mg PO DAILY timolol maleate 0.5 % drops 1 drp ophthalmic (eye) DAILY Rx Instructions: both eyes potassium chloride 20 mEq tablet extended release 20 meq PO DAILY Augmentin 500-125 mg tablet 1 tab PO BID Qty: 20 0RF Discharge Orders: Discharge ED (Routine); Ordered 07/03/24 Ordered By: Aditya Lowery Referrals: Radha Baer MD [Primary Care Provider] - 1 week Patient Instructions: Fall Prevention for Older Adults (ED) Activity Restrictions/Additional Instructions: Your left elbow was x-rayed in your head with CT both read by the radiologist as negative. Please follow-up with your family practice physician within next 7 days for further evaluation and treatment as needed. Thank you for choosing [facility] for your healthcare needs today. Please realize that you were seen in the emergency department and that we are providing you with an emergency medical screening exam and this may not be a complete and all exclusive of all testing and/or medical workup we may need to determine your element or severity of your illness. It is very important that you follow-up as instructed with your primary care provider or specialist for the additional evaluation and to discuss your medical treatment plan. You may return to the emergency department should you have concerns or if your condition changes or worsens in any way. Coding Level of Care Code ED Exhibit Cleaner for Nicolas Christensen
[2024-07-02 23:38] VITALS: BP 151/78; PULSE 86; O2SAT 98
[2024-07-02 23:39] LABS: Basophils % 0.4 %; Eosinophils # 0.2 10^3/uL (0.0-0.8); Eosinophils % 2.9 %; Hematocrit 49.5 % (37-53); Lymphocytes # 0.4 10^3/uL (0.8-4.8); Lymphocytes % 4.9 %; Mean Corpuscular HGB Conc 33.3 g/dL (30-55); Mean Corpuscular Hemoglobin 32.4 pg (27-33); Mean Corpuscular Volume 97.1 fl (82-101); Mean Platelet Volume 9.8 fL (7.4-10.4); Monocytes # 0.5 10^3/uL (0.2-0.9); Monocytes % 6.1 %; Neutrophils % 85.3 %; Nucleated Red Blood Cells % 0 %; Platelet Count 151 10^3/cmm (157-399); Red Cell Distribution Width 12.8 % (12.1-15.1); White Blood Count 8.42 10^3/uL (3.29-11.43)
[2024-07-02 23:48] LABS: Alanine Aminotransferase 15 U/L (0-41); Albumin Level 3.9 g/dL (3.5-5.2); Alkaline Phosphatase 97 U/L (40-130); Anion Gap 14.1 (5-19); Aspartate Amino Transferase 17 U/L (0-40); Blood Urea Nitrogen 18 mg/dL (8-23); Calcium 9.9 mg/dL (8.5-10.5); Carbon Dioxide 26 mmol/L (22-29); Chloride 104 mmol/L (98-107); Creatinine Clr Calc Pharmacy 73.4303; Globulin 3.2 g/dL (1.3-4.6); Glucose 162 mg/dL (65-115); INR 1.02 (0.8-1.2); Magnesium 1.8 mg/dL (1.7-2.3); Osmolality Calculated 293 mOsm/kg (285-295); Potassium 5.1 mmol/L (3.5-5.1); Sodium 139 mmol/L (136-145); Total Bilirubin 1.1 mg/dL (0.15-1.2); Total Protein 7.1 g/dL (6.6-8.7)
[2024-07-03 00:30] VITALS: BP 137/76; PULSE 75; O2SAT 97
--- NOTE | 2024-07-03 01:19 | PC.NURSE ---
Report called to Irlanda at [facility] assisted [facility]. notified that was on his way home.
[2024-07-03 01:20] VITALS: BP 142/68; PULSE 73; O2SAT 96
== END 2024-07-03 00:50 | disposition home or self-care (01) ==
PROVIDERS: Emergency Provider Emergency Medicine; PCP Family Medicine
DX: S00.83XA Contusion of other part of head, initial encounter (principal); S00.81XA Abrasion of other part of head, initial encounter; M25.522 Pain in left elbow; W19.XXXA Unspecified fall, initial encounter; Z79.02 Long term (current) use of antithrombotics/antiplatelets
CPT/HCPCS: 36415; 70450; 73080; 80053; 83735; 85025; 85610; 99284